=== PATIENT | male | born 1950 | race Caucasian/White ===

== ENCOUNTER 2025-03-07 12:58 | Outpatient (REF) | payer MEDICARE, SELFPAY ==
--- NOTE | ~2025-03-07 | XR_ITS ---
Examination: Lumbar spine 4 views. CLINICAL INDICATION: Low back pain. COMPARISON: None. FINDINGS: There is maintained lumbar lordosis with grade 1 anterolisthesis L4-L5. Rest of the vertebral alignment is normal. There is loss of disc height virtually at every lumbar disc level with mild ventral spondylosis. There is minimal positional levoscoliosis. No lytic or sclerotic process seen. The paravertebral soft tissues are normal. SI joints are symmetrical and normal. Incidental finding of a left hip prosthesis partially visualized is noted. XR/XR lumbar spine 4V min IMPRESSION: Degenerative disc changes and spondylosis. There is grade 1 anterolisthesis L4 over L5.. Electronically signed by: Joseph Olsen MD 03/07/2025 02:06 PM EDT
== END 2025-03-07 12:59 | disposition home or self-care (01) ==
LOC: HO.HOSX 12:58
PROVIDERS: Referring Provider Physical Medicine & Rehabilitation; Visit Provider Neurological Surgery
DX: M48.062 Spinal stenosis, lumbar region with neurogenic claudication (principal)
CPT/HCPCS: 72110; 99202

== ENCOUNTER 2025-03-07 12:58 | Outpatient (AMB) | payer MEDICARE, OTHER, SELFPAY ==
--- NOTE | 2025-03-07 13:16 | HO.SPINEOV ---
Vital Signs 03/07/25 13:18 Height 5 ft 7 in Weight 240 lb BMI 37.6 Intake Visit Reasons: LBP Intake Note: Mr. Loja is here today c/o Low back pain. Bar Helper Required: No Allergies No Known Allergies Allergy (Verified 03/07/25 13:18) Physical Exam Vital Signs: BMI result Body Mass Index 37.6 Assessment & Plan Assessment & Plan (1) Lumbar stenosis with neurogenic claudication: Code(s): M48.062 - Spinal stenosis, lumbar region with neurogenic claudication Category: Medical Plan: Dear colleague Thank you for referring Ramesh Loja to the office today with a chief complaint of bilateral buttock pain. HPI: This 74-year-old male has a 5 year progressive history of pain in his buttocks with walking and standing. Currently he can walk less than a quarter of a mi or stand less than 10 minutes before the symptoms occur. Sitting down improves the symptoms leaning forward over a shopping cart helps too. The pain is accompanied by fatigue in his legs. Second complaint is back pain across the lumbar spine with spasms that can occur after prolonged sitting were lifting. The pain restricted he has social life and he is not going out as often. He underwent physical therapy, chiropractic therapy and multiple epidural steroid injections without effect. He also did laser pain therapy he is using Celebrex and gabapentin for the symptoms. PMH: Diabetes type 2, last A1c 5.7 hypercholesterolemia, bilateral knee replacement left hip replacement, gastroplasty bilateral cataract surgery. Medications: Trazodone, tizanidine, Celebrex, atorvastatin, metformin, omeprazole, Zyrtec, Ozempic and gabapentin Allergies: NKDA Social history: . 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 Nonsmoker Physical Exam: Height 5 7, weight 240 lb. He is able to reproduce the pain down his buttocks after a few minutes of standing in the office. There are no deficits for motor or sensation. Straight leg raise is negative. Radiological Studies: MRI done at [facility] on 11/18/2024 shows moderate L4-5 central spinal stenosis and bilateral L4 foraminal stenosis. Dynamic lumbar x-rays show a minimal L4-5 spondylolisthesis without gross instability. Impression/Plan: Mr. Loja is suffering from progressive neurogenic claudication due to L4-5 spinal stenosis. He failed conservative management. I offered him an L4-5 decompression. At this stage she is not a candidate for a fusion despite the back pain component in his history. He is aware that a laminotomy has a minor risk of the stabilizing the L4-5 segment, requiring a fusion surgery. He wants to proceed in his scheduled for July 05. He will stop his Ozempic 1 week prior to surgery. He has a scheduled follow-up with a retort unloader for sleep apnea and he will get preoperative clearance from his primary care physician. Thank you for allowing me to participate in your patients care. total time spent was 50 minutes in counseling ,coordination of plan, personal review of imaging, surgical decision making and subsequent plan Rigo Dudley MD, PhD Spine Fellowship Trained Neurosurgeon Director, [facility] Orders: Orders XR lumbar spine 4V min Today M48.062 - Spinal stenosis, lumbar region with neurogenic claudication Coding Level of Care Code New Pt Level 4 (76762) Diagnoses Lumbar stenosis with neurogenic claudication M48.062
[2025-03-07 13:18] VITALS: BMI 37.6
--- OUTSIDE RECORDS SUMMARY | 2025-03-07 14:01 | XMS_ITS | Data Portability ---
Author Organization [facility] Address [address] [facility] [address] [place] [address] Assessment Encounter Date Assessment Date Assessment LastModified by Organization Details LastModified Time 07/07/2023 07/07/2023 Specific Analgesic Plan: Continue present Regimen: Yes Adjust dose of present analgesic: No Switch analgesics: No Add/Adjust concomitant therapy: Yes Discontinue/tap er off opioid therapy: n/a Opioid dependence discussed with patient. ___25__ minutes spent face to face with patient with greater than 50% spent counseling and/or coordinating care. Not available 07/07/2023 19:26:01 09/14/2023 09/14/2023 Specific Analgesic Plan: Continue present Regimen: Yes Adjust dose of present analgesic: No Switch analgesics: No Add/Adjust concomitant therapy: Yes Discontinue/tap er off opioid therapy: No __19___ minutes spent face to face with patient with greater than 50% spent counseling and/or coordinating care. Not available 09/14/2023 18:57:22 Plan of Treatment Reminders Order Date Submit Date Provider Last Modified By Organization Details Last Modified Time Details Appointments None recorded. Lab None recorded. Referral None recorded. Procedures other (proc) 2022 023 [email or web address], [address] [facility] [address], [place], [phone], 19:36:35 medial branch block, cervical (PROC) 2022 023 [email or web address], [address] [facility], [facility] [address], [place], [address], 19:36:35 Surgeries None recorded. Imaging None recorded. Medication Orders lidocaine 5 % topical ointment 2022 023 [id number], [id number], [place], [phone], 19:01:11 Patient TargetsNo targets recorded. Patient Instructions Encounter Date Encounter Id Patient Instructions Last Modified By Organization Details Last Modified Time 07/07/2023 [id number] cervical spondylosis: care instructions Not available 07/07/2023 19:36:35 neck arthritis: exercises Not available 07/07/2023 19:36:35 Opioid risks/benefits/de pendence discussed with patient. BMI elevated. Neg tob. Pos fall risk and dep. Not available 07/07/2023 19:36:33 09/14/2023 [id number] cervical spondylosis: care instructions Not available 09/14/2023 19:01:06 neck arthritis: exercises Not available 09/14/2023 19:01:06 Opioid risks/benefits/de pendence discussed with patient. BMI ELEVATED. NEG DEP AND FALL RISK. Neg tob. Not available 09/14/2023 19:08:37 Reason for Referral None Reported. Results Created Date Observation Date Name Description Value Unit Range Abnormal Flag Note LastModifiedBy Organization Detail LastModifiedTime 05/19/2005/19/2023 XR, cervi randy spine , 2 or 3 view No observ ation record ed. [facility] [address] [place], [place] [id number], [id number], 05/25/2023 16:21:17 Result Notes None recorded. Problems Name Problem SNOMED Code Status Onset Date Resolution Date Notes Provider Name and Address Organization Details Recorded Time Cervical spondylosi s 230591275 Active 2022 Joesph Nair MD [address] [facility] [address], [place], [address], - [facility] 19:28:13 Pain in right hand 683287635242 109 Active 2022 Joesph Nair MD [address] [facility] [address], [place], [address], - [facility] 3 18:58:04 Notes:LEFT BUTTOCK PAIN Problem Notes None recorded. Medical Equipment None Reported. Allergies No known drug allergies Medications Name Sig Start Date Stop Date Status Note LastModified by Organization Details LastModified Time latanoprost 0.005 % eye drops INSTILL 1 DROP INTO BOTH EYES EVERY EVENING DIRECTED active Not Available Not Available No t Available atorvastatin 40 mg tablet TAKE 1 TABLET BY MOUTH DAILY active Not Available Not Available No t Available neomycin-poly myxin-hydroco rt 3.5 mg/mL-10,000 unit/mL-1 % ear solution SHAKE LIQUID AND INSTILL 1 DROP IN BOTH EARS FOUR TIMES DAILY FOR 10 DAYS active Not Available Not Available No t Available atorvastatin 20 mg tablet active Not Available Not Available Not Available tizanidine 2 mg tablet TAKE 1 TABLET BY MOUTH TWICE DAILY NEEDED active Not Available Not Available No t Available alprazolam 1 mg tablet active Not Available Not Available No t Available valacyclovir 1 gram tablet TAKE 2 TABLETS BY MOUTH TWICE DAILY FOR 1 DAY AT INITIAL ONSET OF COLD SORE. NOT TO EXCEED 4 TABLETS IN 24 HOURS active Not Available Not Available No t Available hydrocodone 5 mg-acetaminop hen 325 mg tablet active Not Available Not Available Not Available atovaquone 250 mg-proguanil 100 mg tablet active Not Available Not Availabl e Not Available famotidine 40 mg tablet TAKE 1 TABLET BY MOUTH EVERY EVENING active Not Available Not Available No t Available acetaminophen 300 mg-codeine 30 mg tablet TAKE 1 TABLET BY MOUTH EVERY 6 HOURS NEEDED active Not Available Not Available No t Available ciprofloxacin 500 mg tablet TAKE 1 TABLET BY MOUTH TWICE DAILY FOR 7 DAYS active Not Available Not Available No t Available sulfamethoxaz ole 800 mg-trimethopr im 160 mg tablet active Not Available Not Available Not Available omeprazole 40 mg capsule,delay ed release TAKE 1 CAPSULE BY MOUTH TWICE DAILY BEFORE MEALS active Not Available Not Available No t Available aspirin 81 mg tablet,delaye d release TAKE 1 TABLET BY MOUTH DAILY active Not Available Not Available No t Available amoxicillin 500 mg tablet TAKE 1 TABLET BY MOUTH THREE TIMES DAILY active Not Available Not Available No t Available alprazolam 0.5 mg tablet active Not Available Not Availabl e Not Available alprazolam 0.25 mg tablet TAKE 1 TABLET BY MOUTH EVERY DAY NEEDED FOR ANXIETY active Not Available Not Available No t Available hydrocortison e 2.5 % lotion APPLY TWICE DAILY TO THE AFFECTED AREA NEEDED active Not Available Not Available No t Available tamsulosin 0.4 mg capsule TAKE 2 CAPSULES BY MOUTH EVERY DAY active Not Available Not Available No t Available trazodone 100 mg tablet TAKE 2 TABLETS BY MOUTH EVERY NIGHT active Not Available Not Available No t Available levothyroxine 125 mcg tablet TAKE 1 TABLET BY MOUTH DAILY active Not Available Not Available No t Available scopolamine 1 mg over 3 days transdermal patch APPLY 1 PATCH TOPICALLY TO THE SKIN EVERY 72 HOURS active Not Available Not Available No t Available timolol maleate 0.5 % eye drops INSTILL 1 DROP IN BOTH EYES EVERY MORNING active Not Available Not Available No t Available celecoxib 100 mg capsule active Not Available Not Available N ot Available cefdinir 300 mg capsule TAKE 1 CAPSULE BY MOUTH TWICE DAILY active Not Available Not Available No t Available fluticasone propionate 50 mcg/actuation nasal spray,suspens ion SHAKE LIQUID AND USE 2 SPRAYS IN EACH NOSTRIL DAILY active Not Available Not Available No t Available metformin ER 500 mg tablet,extend ed release 24 hr TAKE 1 TABLET BY MOUTH EVERY EVENING active Not Available Not Available No t Available sodium fluoride 1.1 % dental gel USE TO BRUSH TEETH ONCE DAILY DIRECTED active Not Available Not Available No t Available Alcohol Prep Pads USE TO TEST BLOOD SUGAR EVERY DAY active Not Available Not Available No t Available FreeStyle Lite Strips TEST BLOOD SUGAR EVERY DAY active Not Available Not Available No t Available lidocaine 5 % topical ointment APPLY TO AFFECTED AREA(S) BY TOPICAL ROUTE 1-4 TIMES DAILY NEEDED 2022 active Not Available Not Available Not Avai lable selenium sulfide 2.5 % lotion WASH AFFECTED AREA EVERY OTHER DAY active Not Available Not Available No t Available Quick[employer]ue At-Home COVID-19 Test kit TEST DIRECTED TODAY active Not Available Not Available No t Available Ozempic 0.25 mg or 0.5 mg (2 mg/3 mL) subcutaneous pen injector INJECT 0.5MG INTO THE SKIN EVERY 7 DAYS active Not Available Not Available No t Available Vitals Date Recorded Heart rate Respiratory rate Provider N aston and Address Organization Details Last Updated DateTime 07/07/2023 86 /min 14 /min Joesph Nair MD [address] [facility] [address], [place], [id number] 07/07/2023 19:20:52 Date Recorded Body height Heart rate Respiratory rate Body mass index (BMI) Body weight Provider Name and Address Organization Details Last Updated DateTime 09/14/2023 165.1 cm 64 /min 14 /min 39.9 kg/m2 936347. 17 g Joesph Nair MD [address],[facility] [address], [place], [address], - [facility] 3 18:54:43 Social History Question Answer Notes LastModified by Organizat ion Details LastModified Time Tobacco Smoking Status Unknown If Ever Smoked Not Available [facility] 08/13/2020 03:35:00 What Was The Date Of Your Most Recent Tobacco Screening? 05/01/2019 [id number] Information not available 08/13/2020 Sex: Unknown Functional Status None recorded. Mental Status None recorded. Family History Nothing Reported. Medical History Condition Response Anxiety Disorder Y Diabetes Y Acid Reflux (GERD) Y Ulcers High Cholesterol Y Past Encounters Encounter ID Performer Location Encounter Start Date Encounter Closed Date Diagnosis/Indication Diagnosis SNOMED-CT Code Diagnosis ICD10 Code Diagnosis Note [id number] Joesph Nari MD [facility] [address] [address] [place] [address] 07/07/2023 17:48:34 07/07/2023 19:37:23 Cervical spondylosis 994189879 M47.812 [id number] Joesph Nair MD [facility] T [address] [address] [place] [address] 09/14/2023 17:48:19 09/14/2023 19:02:07 Pain in right hand 5263426438 14309 M79.641 Cervical spondylosis 387 065821 M47.812 Lumbar spondylosis 21762 0009 M47.896 Health Concerns Section Related Observation LastModified by Organization Detai ls LastModified Time None Recorded Concern Status LastModified by Organization Details LastModified Time None Recorded Advance Directives Directive None Recorded Payers Encounter Date Sequence Insurance Name Policy Number Policy Paredes Covered Member ID Paredes Member ID Guarantor Name 07/07/2023 1 MEDICARE B-MD Ramesh Loja [id number] Ramesh Loja 07/07/2023 2 [employer] [id number] Ramesh Loja [id number] Ramesh Loja 09/14/2023 1 MEDICARE B- Ramesh Loja [id number] Ramesh Loja 09/14/2023 2 [employer] [id number] Ramesh Loja [id number] Ramesh Loja Notes Date Note Type Note Provider Name and Address Organization Details Recorded Time 07/07/2023 text/html Analgesia - If z ero indicates no pain and ten indicates pain as bad as it can be, on a scale of 0 to 10, what is your level of pain for the following questions? 1. What was your pain level on average during the past week? 6 2. What was your pain level at its worst during the past week? 6 3. What percentage of your pain has been relieved during the past week? ____70_% 4. Is the amount of pain relief you are now obtaining from your current pain reliever(s) enough to make a real difference in your life? Yes 5. Is the patient's pain relief clinically significant? Yes Activities of Daily Living - Please indicate whether the patient's functioning with the current pain reliever(s) is better, the same, or worse since the patient's last assessment with the PADT. 1. Physical functioning: Same 2. Family Relationships: Same 3. Social Relationships: Same 4. Mood: Same 5. Sleep Patterns: Same Overall functioning: Same Adverse Events 1. Is patient experiencing any side effects from current pain reliever? No Nausea: None Vomiting: None Constipation: None Itching: None Mental Cloudiness: None Sweating: None Fatigue: None Drowsiness: None INSERT TEXT HERE: None 2. Patients overall severity of side effects? None Assessment: Is your overall impression that this patient is benefiting (eg, benefits, such as pain relief, outweigh side effects) from opioid therapy? Yes COMMENTS: Potential Aberrant Drug-Related Behavior - The following items were discovered during my interactions with the patient. Please note that some of these are directly observable (eg, appears intoxicated), while others may require more active listening and/or probing. a. Purposeful over-sedation: No b. Negative mood change: No c. Appears intoxicated: No d. Increasingly unkempt or impaired: No e. Involvement in car or other accident: No f. Requests frequent early renewals: No g. Increased dose without authorization: No h. Reports lost or stolen prescriptions: No i. Attempts to obtain prescriptions from other doctors: No j. Changes route of administration: No k. Uses pain medication in response to situational stressor: No l. Insists on certain medications by name: No m. Contact with street drug culture: No n. Abusing alcohol or illicit drugs: No o. Hoarding (ie, stockpiling) of medication: No p. Arrested by police: No q. Victim of abuse: No r. INSERT TEXT HERE: Patients average overall daily pain for the past month on a scale of 1-10: 6 1.) Continued significant reduction in Pain leading to comfortably carrying out ADLs Yes 2.) Improvement in mood and enjoyment of ADLs Yes 3.) A return to meaningful social interactions Yes 4.) Increased mobility Yes 5.) Increased ROM Yes 6.) Ability to maintain or return to work Yes 7.) Ability to care for self Yes 8.) Ability to care for dependent family members Yes 9.) Overall improvement in quality of life Yes Joesph Nair MD [address] [facility] [address], [place], [address], - [facility] 07/07/2023 19:37:21 09/14/2023 text/html Analgesia - If z ero indicates no pain and ten indicates pain as bad as it can be, on a scale of 0 to 10, what is your level of pain for the following questions? 1. What was your pain level on average during the past week? 3 2. What was your pain level at its worst during the past week? 3 3. What percentage of your pain has been relieved during the past week? 90% 4. Is the amount of pain relief you are now obtaining from your current pain reliever(s) enough to make a real difference in your life? Yes 5. Is the patient's pain relief clinically significant? Yes Activities of Daily Living - Please indicate whether the patient's functioning with the current pain reliever(s) is better, the same, or worse since the patient's last assessment with the PADT. 1. Physical functioning: Better 2. Family Relationships: Better 3. Social Relationships: Better 4. Mood: Better 5. Sleep Patterns: Better Overall functioning: Better Adverse Events 1. Is patient experiencing any side effects from current pain reliever? No Nausea: None Vomiting: None Constipation: None Itching: None Mental Cloudiness: None Sweating: None Fatigue: None Drowsiness: None INSERT TEXT HERE: None 2. Patients overall severity of side effects? None Assessment: Is your overall impression that this patient is benefiting (eg, benefits, such as pain relief, outweigh side effects) from opioid therapy? Yes COMMENTS: Potential Aberrant Drug-Related Behavior - The following items were discovered during my interactions with the patient. Please note that some of these are directly observable (eg, appears intoxicated), while others may require more active listening and/or probing. a. Purposeful over-sedation: No b. Negative mood change: No c. Appears intoxicated: No d. Increasingly unkempt or impaired: No e. Involvement in car or other accident: No f. Requests frequent early renewals: No g. Increased dose without authorization: No h. Reports lost or stolen prescriptions: No i. Attempts to obtain prescriptions from other doctors: No j. Changes route of administration: No k. Uses pain medication in response to situational stressor: No l. Insists on certain medications by name: No m. Contact with street drug culture: No n. Abusing alcohol or illicit drugs: No o. Hoarding (ie, stockpiling) of medication: No p. Arrested by police: No q. Victim of abuse: No r. INSERT TEXT HERE: Patients average overall daily pain for the past month on a scale of 1-10: 6 1.) Continued significant reduction in Pain leading to comfortably carrying out ADLs Yes 2.) Improvement in mood and enjoyment of ADLs Yes 3.) A return to meaningful social interactions Yes 4.) Increased mobility Yes 5.) Increased ROM Yes 6.) Ability to maintain or return to work Yes 7.) Ability to care for self Yes 8.) Ability to care for dependent family members Yes 9.) Overall improvement in quality of life Yes Joesph Nair MD [address] [facility] [address], [place], [address], [facility] 09/14/2023 19:08:45
== END 2025-03-07 14:10 | disposition home or self-care (01) ==
PROVIDERS: Referring Provider Physical Medicine & Rehabilitation; Visit Provider Neurological Surgery
DX: M48.062 Spinal stenosis, lumbar region with neurogenic claudication (principal)
CPT/HCPCS: 99204

== ENCOUNTER → 2025-03-07 13:38 | Outpatient (BNV) | payer MEDICARE, SELFPAY | PROVIDERS: Referring Provider Physical Medicine & Rehabilitation; Visit Provider Radiology Diagnostic Radiology | DX: M47.896 Other spondylosis, lumbar region (principal) | CPT/HCPCS: 72110 ==

== ENCOUNTER → 2025-06-21 11:51 | Outpatient (BNV) | payer MEDICARE, OTHER, SELFPAY | PROVIDERS: Visit Provider Internal Medicine Cardiovascular Disease | DX: R00.1 Bradycardia, unspecified (principal) | CPT/HCPCS: 93010 ==

== ENCOUNTER 2025-07-05 07:02 | Day surgery (SDC) | payer MEDICARE, OTHER, SELFPAY ==
--- OUTSIDE RECORDS SUMMARY | 2025-05-08 16:34 | XMS_ITS | Encounter Summary ---
Author Organization [facility] Address [address] [facility] [address] [place] [address] Phone Care Team Providers Care Interior Wall Assembler Name Role Phone Sonja David NP Primary Care Provider [phone] Encounter Details Date Type Department Care Team (Late st Contact Info) Description 03/16/2025 Telephone [facility] [address] [place] [address] [address] Floor, [address] [place] [address] Chilo Kuo MD [address] [facility], [facility] [address] [place] [address] [email or web address] Social History Tobacco Use Types Packs/Day Years Used Date Smoking Tobacco: Former Cigarettes Q uit: 2004 Smokeless Tobacco: Never Alcohol Use Standard Drinks/Week Comments Yes 7 (1 standard drink = 0.6 oz pur e alcohol) 1 Education Answer Date Recorded Are you interested in more education? Not on berny e 01/18/2024 Are you concerned about learning? Not on file 01/18/2024 No 01/18/2024 No 01/18/2024 Digital Access Answer Date Recorded No 01/18/2024 No 01/18/2024 Reliable internet access at home? Not on file 01/18/2024 Device with a working camera? Not on file Intimate Partner Violence Answer Date R ecorded Are you denied basic needs s uch as food, clothing, or medical care? No 05/09/2024 In the past 12 months have y ou been in a relationship with a person who hurts, threatens, or tries to control you? No 05/09/2024 Are you denied basic needs s uch as food, clothing, or medical care? No 05/09/2024 In the past 12 months have y ou been in a relationship with a person who hurts, threatens, or tries to control you? No 05/09/2024 Sex and Gender Information Value Date Recorded Sex Assigned at Not on file Legal Sex Male 12:22 PM EDT Gender Identity Male 04/20/2024 7:44 AM EDT Sexual Orientation Straight 04/20/2024 7: 44 AM EDT documented as of this encounter Progress Notes * Delmis Lea - 03/21/2025 9:49 AM EDT Pt wants to go forward with the in-lab. He said [facility] is convenient for him for the study * Delmis Lea - 03/16/2025 10:52 AM EDT Pt is hoping to go over results of sleep study documented in this encounter Plan of Treatment Not on file documented as of this encounter Visit Diagnoses Not on filedocumented in this encounter Care Teams Interior Wall Assembler Relationship Specialty Start Date End Date Sonja David NP [address] [place] [id number] PCP - General Nurse Practitioner 09/20/24 documented as of this encounter Additional Source Comments The information contained in this document represents components of the legal health record. It is not the complete legal health record.[facility]
--- OUTSIDE RECORDS SUMMARY | 2025-05-08 16:34 | XMS_ITS | Data Portability ---
Author Organization [facility] Address [address] [facility] [address] [place] [address] Assessment Encounter Date Assessment Date Assessment LastModified [...] 2022 023 [email or web address], [address] [facility] [address], [place], [address], 19:36:35 medial branch block, cervical (PROC) 2022 023 [email or web address] 4 [facility], [address] [facility] [address], [place], [address], 19:36:35 Surgeries None recorded. Imaging None recorded. Medication Orders lidocaine 5 % topical ointment 2022 023 [id number] [id number], [place], [phone], 19:01:11 Patient TargetsNo targets recorded. Patient Instructions Encounter Date Encounter Id Patient Instructions Last Modified By Organization Details Last Modified Time 07/07/2023 [id number] cervical spondylosis: care instructions Not available 07/07/2023 19:36:35 neck arthritis: exercises Not available 07/07/2023 19:36:35 Opioid risks/benefits/de pendence discussed with patient. BMI elevated. Neg tob. Pos fall risk and dep. Not available 07/07/2023 19:36:33 09/14/2023 [id number] cervical spondylosis: care instructions Not available 09/14/2023 [...] 3 view No observ ation record ed. [facility] [address] [place], [id number], 05/25/2023 16:21:17 Result Notes None recorded. Problems Name Problem SNOMED Code Status Onset Date Resolution Date Notes Provider Name and Address Organization Details Recorded Time Cervical spondylosi s 652475031 Active 2022 Joesph Nair MD [address] [place] [address],[facility] [address], [place], [address], - [facility] 19:28:13 Pain in right hand 741088731108 109 Active 2022 Joesph Nair MD [address] [place] [address],[facility] [address], [place], [address], MD [facility] 3 18:58:04 Notes:LEFT BUTTOCK [...] Vitals Date Recorded Heart rate Respiratory rate Pain severity - 0-10 verbal numeric rating [Score] - Reported Provider Name and Address Organization Details Last Updated DateTime 07/07/2023 86 /min 14 /min 6 Joesph Nair MD [address] [place] [address], [place], [address], - [facility] 07/07/2023 19:21:30 Date Recorded Body height Heart rate Respiratory rate Pain severity - 0-10 verbal numeric rating [Score] - Reported Body mass index (BMI) Body weight Provider Name and Address Organization Details Last Updated DateTime 3 165.1 cm 64 /min 14 /min 4 39.9 kg/m2 542380. 17 g Joesph Nair MD [address] [place] [address] , [place], [address], - [facility] 3 18:54:43 Social History Question Answer Notes LastModified by Organizat ion Details LastModified Time Tobacco Smoking Status Unknown If Ever Smoked Not Available [facility] 03:35:00 What Was The Date Of Your Most Recent Tobacco Screening? 05/01/2019 [id number] Information not available 08/13/2020 Sex: Unknown Functional Status None recorded. Mental Status None recorded. Family History Nothing Reported. Medical History Condition Response Anxiety Disorder Y Diabetes Y Acid Reflux (GERD) Y Ulcers High Cholesterol Y Past Encounters Encounter ID Performer Location Encounter Start Date Encounter Closed Date Diagnosis/Indication Diagnosis SNOMED-CT Code Diagnosis ICD10 Code Diagnosis Note [id number] Joesph Nair MD [facility] [address] [place] [address] [place] [address] 07/07/2023 17:48:34 07/07/2023 19:37:23 Cervical spondylosis 353240545 M47.812 [id number] Joesph Nair MD [facility] [address] [place] [address] [place] [address] 09/14/2023 17:48:19 09/14/2023 19:02:07 Pain in right hand 3549125559 92894 M79.641 Cervical spondylosis 387 423238 M47.812 Lumbar spondylosis 99432 0009 M47.896 Health Concerns Section Related Observation LastModified by Organization Detai ls LastModified Time None Recorded Concern Status LastModified by Organization Details LastModified Time None Recorded Advance Directives Directive None Recorded Payers Insurance Date Sequence Insurance Name Policy Number Policy Paredes Covered Member ID Paredes Member ID Guarantor Name 04/20/2019 1 MEDICARE B-MD Ramesh Loja [id number] Ramesh Loja 04/20/2019 2 [employer] [id number] Ramesh Loja [id number] Rmaesh Loja
--- OUTSIDE RECORDS SUMMARY | 2025-05-08 16:35 | XMS_ITS ---
Author Name [facility] Organization Unknown Results Test Name/Text Value Interpretation Date Range Source PROSTATE SPECIFIC AG 0.44 ng/mL Normal 01/26/2024 0 - 6.2 [facility] GLOMERULAR FILTRATION RATE/1.73 SQ M.PREDICTED 92.0 Normal 01/26/2024 - [facility] OSMOLALITY 278.0 mOsm/kg Normal 01/26/2024 275 - 295 [facility] POTASSIUM 4.4 mmol/L Normal 01/26/2024 3.5 - 5.1 [facility] TR CALCIUM 8.9 mg/dL Normal 01/26/2024 8.5 - 10.1 [facility] TR CREATININE 0.8 mg/dL Normal 01/26/2024 0.6 - 1.3 [facility] TR GLUCOSE 90.0 mg/dL Normal 01/26/2024 70 - 99 [facility] TR CARBON DIOXIDE 26.0 mmol/L Normal 01/26/2024 22 - 30 [facility] SODIUM 139.0 mmol/L Normal 01/26/2024 136 - 145 [facility] CHLORIDE 107.0 mEq/L Normal 01/26/2024 98 - 107 [facility] ANION GAP 4 6.0 Normal 01/26/2024 5 - 15 [facility] UREA NITROGEN/CREATININE 20.0 Normal 01/26/2024 10 - 20 [facility] TR UREA NITROGEN 16.0 mg/dL Normal 01/26/2024 7 - 20 [facility] _[facility] Hemoglobin A1c/Hemoglobin.total in Blood 6.0 % 12/24/2023 4.8 - 6 [facility] GLOMERULAR FILTRATION RATE/1.73 SQ M.PREDICTED 89.0 Normal 12/24/2023 - [facility] ALANINE AMINOTRANSFERASE 20.0 IU/L Normal 12/24/2023 4 - 49 [facility] CREATININE 0.9 mg/dL Normal 12/24/2023 0.6 - 1.3 [facility] TR UREA NITROGEN/CREATININE 17.0 Normal 12/24/2023 10 - 20 [facility] TR PROTEIN 6.8 g/dL Normal 12/24/2023 6.4 - 8.2 [facility] R ALBUMIN/GLOBULIN 1.3 ratio Normal 12/24/2023 0.8 - 2 [facility] GLOBULIN 2.9 g/dL Normal 12/24/2023 2.2 - 4.2 [facility] R GLUCOSE 109.0 mg/dL Above high normal 12/24/2023 70 - 99 [facility] UREA NITROGEN 15.0 mg/dL Normal 12/24/2023 7 - 20 [facility] _[facility] SODIUM 138.0 mmol/L Normal 12/24/2023 136 - 145 [facility] CHLORIDE 104.0 mEq/L Normal 12/24/2023 98 - 107 [facility] BILIRUBIN 0.6 mg/dL Below low normal 12/24/2023 1 - 1.4 [facility] ASPARTATE AMINOTRANSFERASE 20.0 U/L Normal 12/24/2023 17 - 59 [facility] CALCIUM 8.8 mg/dL Normal 12/24/2023 8.5 - 10.1 [facility] TR ALKALINE PHOSPHATASE 52.0 U/L Normal 12/24/2023 38 - 126 [facility] ANION GAP 4 6.0 Normal 12/24/2023 5 - 15 [facility] ALBUMIN 3.9 g/dL Normal 12/24/2023 3.4 - 5 [facility] R POTASSIUM 4.4 mmol/L Normal 12/24/2023 3.5 - 5.1 [facility] TR CARBON DIOXIDE 28.0 mmol/L Normal 12/24/2023 22 - 30 [facility] OSMOLALITY 277.0 mOsm/kg Normal 12/24/2023 275 - 295 [facility] CHOLESTEROL.IN HDL 38.0 mg/dL Below low normal 12/24/2023 - [facility] CHOLESTEROL.TOTAL/SUJATHA STEROL.IN HDL 3.3 Normal 12/24/2023 0 - 3.9 [facility] CHOLESTEROL.IN VLDL 21.6 mg/dL Normal 12/24/2023 0 - 29 [facility] TRIGLYCERIDE 108.0 mg/dL Normal 12/24/2023 15 - 150 [facility] _[facility] CHOLESTEROL.IN LDL 67.0 mg/dL Normal 12/24/2023 0 - 124 [facility] CHOLESTEROL 127.0 mg/dL Normal 12/24/2023 50 - 200 [facility] HEMOGLOBIN A1C/HEMOGLOBIN.TOTAL 6.0 % Normal 12/24/2023 4.8 - 6 [facility] GLUCOSE 76.0 mg/dL Normal 11/09/2023 70 - 109 [facility] TR GLOMERULAR FILTRATION RATE.PREDICTED 78.0 Normal 11/08/2023 - [facility] TRIACYLGLYCEROL LIPASE 237.0 u/L Normal 11/08/2023 23 - 3 00 [facility] MAGNESIUM 2.3 mg/dL Normal 11/08/2023 1.6 - 2.3 [facility] R ALBUMIN 4.4 g/dL Normal 11/08/2023 3.4 - 5 [facility] R ALBUMIN/GLOBULIN 1.2 ratio Normal 11/08/2023 0.8 - 2 [facility] ANION GAP 4 7.0 Normal 11/08/2023 5 - 15 [facility] STR UREA NITROGEN 15.0 mg/dL Normal 11/08/2023 7 - 20 [facility] _[facility] PROTEIN 8.1 g/dL Normal 11/08/2023 6.4 - 8.2 [facility] R GLOBULIN 3.7 g/dL Normal 11/08/2023 2.2 - 4.2 [facility] R BILIRUBIN 0.4 mg/dL Below low normal 11/08/2023 1 - 1.4 [facility] ALKALINE PHOSPHATASE 64.0 U/L Normal 11/08/2023 38 - 126 [facility] CARBON DIOXIDE 31.0 mmol/L Above high normal 11/08/2023 22 - 30 [facility] CREATININE 1.0 mg/dL Normal 11/08/2023 0.6 - 1.3 [facility] TR SODIUM 139.0 mmol/L Normal 11/08/2023 136 - 145 [facility] OSMOLALITY 282.0 mOsm/kg Normal 11/08/2023 275 - 295 [facility] CALCIUM 9.9 mg/dL Normal 11/08/2023 8.5 - 10.1 [facility] TR GLUCOSE 165.0 mg/dL Above high normal 11/08/2023 70 - 99 [facility] POTASSIUM 4.4 mmol/L Normal 11/08/2023 3.5 - 5.1 [facility] TR ASPARTATE AMINOTRANSFERASE 36.0 U/L Normal 11/08/2023 17 - 59 [facility] U[facility] NITROGEN/CREATININE 15.0 Normal 11/08/2023 10 - 20 [facility] TR CHLORIDE 101.0 mEq/L Normal 11/08/2023 98 - 107 [facility]_ STR ALANINE AMINOTRANSFERASE 40.0 IU/L Normal 11/08/2023 4 - 49 [facility] LE[facility] 13.1 Thou/uL Above high normal 11/08/2023 4 - 10. 8 [facility] ERYTHROCYTE MEAN CORPUSCULAR VOLUME 92.1 fL Normal 11/08/2023 81.2 - 95.1 [facility] ERYTHROCYTE MEAN CORPUSCULAR HEMOGLOBIN CONCENTRATION 31.9 g/dL Below low normal 11/08/2023 33.4 - 35.5 [facility] ER[facility]TES 4.93 Mill/uL Normal 11/08/2023 4.7 - 6.1 [facility] PLATELETS 453.0 Thou/uL Above high normal 11/08/2023 160 - 450 [facility] PLATELET MEAN VOLUME 8.9 fL Normal 11/08/2023 7.4 - 10 .4 [facility] ERYTHROCYTE DISTRIBUTION WIDTH 13.5 % Normal 11/08/2023 11 - 15 [facility] ERYTHROCYTE MEAN CORPUSCULAR HEMOGLOBIN 29.4 pg Normal 11/08/2023 27.5 - 33.2 [facility] H[facility] 14.5 g/dL Normal 11/08/2023 14 - 18 [facility] TR HEMATOCRIT 45.4 % Normal 11/08/2023 41.5 - 50 [facility] TR EOSINOPHILS/100 LEUKOCYTES 1.7 % Normal 11/08/2023 0 - 5 [facility] GRANULOCYTES.IMMATURE 0.2 Thou/uL Normal 11/08/2023 [facility] BASOP[facility]S/100 LEUKOCYTES 0.2 % Normal 11/08/2023 0 - 3 [facility] BASOPHILS 0.0 Thou/uL Normal 11/08/2023 0 - 0.2 [facility] STR EOSINOPHILS 0.2 Thou/uL Normal 11/08/2023 0 - 0.7 [facility]_ [facility] MONOCYTES/100 LEUKOCYTES 6.1 % Normal 11/08/2023 0 - 15 [facility] LYMPHOCYTES/100 LEUKOCYTES 12.6 % Below low normal 11/08/2023 20 - 45 [facility] NEUTROPHILS 10.2 Thou/uL Above high normal 11/08/2023 2.4 - 8 [facility] MONOCYTES 0.8 Thou/uL Normal 11/08/2023 0.1 - 1.5 [facility] STR LYMPHOCYTES 1.7 Thou/uL Normal 11/08/2023 1 - 5 [facility]_ [facility] GRANULOCYTES.IMMATURE/1 00 LEUKOCYTES 1.0 % Normal 11/08/2023 [facility] NEUTROPHILS/100 LEUKOCYTES 78.1 % Above high normal 11/08/2023 40 - 75 [facility] GLUCOSE 132.0 mg/dL Above high normal 11/08/2023 70 - 109 [facility] PROSTATE SPECIFIC AG 0.54 ng/mL Normal 10/20/2023 0 - 6.2 [facility] GLUCOSE 120.0 mg/dL Above high normal 07/14/2023 70 - 109 [facility] Hemoglobin A1c/Hemoglobin.total in Blood 5.8 % 06/29/2023 4.8 - 6 [facility] HEMOGLOBIN A1C/HEMOGLOBIN.TOTAL 5.8 % Normal 06/29/2023 4.8 - 6 [facility] STR Estimated GFR 89.0 Normal 06/29/2023 - [facility]_ [facility] CHOLESTEROL.IN VLDL 19.0 mg/dL Normal 06/29/2023 0 - 29 [facility] CHOLESTEROL 139.0 mg/dL Normal 06/29/2023 50 - 200 [facility]_ [facility] CHOLESTEROL.TOTAL/SUJATHA STEROL.IN HDL 3.7 Normal 06/29/2023 0 - 3.9 [facility] TRIGLYCERIDE 95.0 mg/dL Normal 06/29/2023 15 - 150 [facility] CHOLESTEROL.IN LDL 82.0 mg/dL Normal 06/29/2023 0 - 124 [facility] CHOLESTEROL.IN HDL 38.0 mg/dL Below low normal 06/29/2023 - [facility] CHLORIDE 104.0 mEq/L Normal 06/29/2023 98 - 107 [facility] STR ANION GAP 4 9.0 Normal 06/29/2023 5 - 15 [facility] STR PROTEIN 6.8 g/dL Normal 06/29/2023 6.4 - 8.2 [facility] R ALANINE AMINOTRANSFERASE 25.0 IU/L Normal 06/29/2023 4 - 49 [facility] ALKALINE PHOSPHATASE 52.0 U/L Normal 06/29/2023 38 - 126 [facility] CARBON DIOXIDE 26.0 mmol/L Normal 06/29/2023 22 - 30 [facility] ALANINE AMINOTRANSFERASE/ASPART ATE AMINOTRANSFERASE 43.0 U/L Normal 06/29/2023 17 - 59 [facility] STR ALBUMIN/GLOBULIN 1.6 ratio Normal 06/29/2023 0.8 - 2 [facility] UREA NITROGEN 15.0 mg/dL Normal 06/29/2023 7 - 20 [facility] _[facility] GLUCOSE 105.0 mg/dL Above high normal 06/29/2023 70 - 99 [facility] POTASSIUM 4.3 mmol/L Normal 06/29/2023 3.5 - 5.1 [facility] TR CALCIUM 8.6 mg/dL Normal 06/29/2023 8.5 - 10.1 [facility] TR OSMOLALITY 279.0 mOsm/kg Normal 06/29/2023 275 - 295 [facility] UREA NITROGEN/CREATININE 17.0 Normal 06/29/2023 10 - 20 [facility] TR SODIUM 139.0 mmol/L Normal 06/29/2023 136 - 145 [facility] ALBUMIN 4.2 g/dL Normal 06/29/2023 3.4 - 5 [facility] R GLOBULIN 2.6 g/dL Normal 06/29/2023 2.2 - 4.2 [facility] R BILIRUBIN 0.5 mg/dL Below low normal 06/29/2023 1 - 1.4 [facility] CREATININE 0.9 mg/dL Normal 06/29/2023 0.6 - 1.3 [facility] TR MONOCYTES/100 LEUKOCYTES 9.0 % Normal 06/29/2023 0 - 15 [facility] EOSINOPHILS/100 LEUKOCYTES 2.8 % Normal 06/29/2023 0 - 5 [facility] MONOCYTES 0.6 Thou/uL Normal 06/29/2023 0.1 - 1.5 [facility] STR BASOPHILS 0.0 Thou/uL Normal 06/29/2023 0 - 0.2 [facility] STR LYMPHOCYTES/100 LEUKOCYTES 19.9 % Below low normal 06/29/2023 20 - 45 [facility] NEUTROPHILS 4.1 Thou/uL Normal 06/29/2023 2.4 - 8 [facility]_ [facility] GRANULOCYTES.IMMATURE/1 00 LEUKOCYTES 1.0 % Normal 06/29/2023 [facility] NEUTROPHILS/100 LEUKOCYTES 67.2 % Normal 06/29/2023 40 - 75 [facility] LYMPHOCYTES 1.2 Thou/uL Normal 06/29/2023 1 - 5 [facility]_ [facility] BASOPHILS/100 LEUKOCYTES 0.3 % Normal 06/29/2023 0 - 3 [facility] GRANULOCYTES.IMMATURE 0.0 Thou/uL Normal 06/29/2023 [facility] EOSINOPHILS 0.2 Thou/uL Normal 06/29/2023 0 - 0.7 [facility]_ [facility] LEUKOCYTES 6.1 Thou/uL Normal 06/29/2023 4 - 10.8 [facility]STR ERYTHROCYTE MEAN CORPUSCULAR VOLUME 95.8 fL Above high normal 06/29/2023 81.2 - 95.1 [facility] _[facility]STR ERYTHROCYTE DISTRIBUTION WIDTH 14.1 % Normal 06/29/2023 11 - 15 [facility] R ERYTHROCYTE MEAN CORPUSCULAR HEMOGLOBIN 30.3 pg Normal 06/29/2023 27.5 - 33.2 [facility]_ [facility] ERYTHROCYTE MEAN CORPUSCULAR HEMOGLOBIN CONCENTRATION 31.6 g/dL Below low normal 06/29/2023 33.4 - 35.5 [facility] HEMOGLOBIN 13.6 g/dL Below low normal 06/29/2023 14 - 18 U [facility] HEMATOCRIT 43.0 % Normal 06/29/2023 41.5 - 50 [facility] TR PLATELET MEAN VOLUME 10.0 fL Normal 06/29/2023 7.4 - 10 .4 [facility] ERYTHROCYTES 4.49 Mill/uL Below low normal 06/29/2023 4.7 - 6.1 [facility] PLATELETS 292.0 Thou/uL Normal 06/29/2023 160 - 450 [facility] History of Medication Use Medication Directions Dispensed Refills Start Date End Date Stat cefTRIAXone (ROCEPHIN) 1 g in sodium chloride 0.9 % 100 mL IVPB MINI-BAG Plus 1 g every 24 hours, Intravenous, at 200 mL/hr, 7 doses, First dose on Wed06/27/22 at 0500, Last dose on Wed07/03/22 at 0500Select an indication for your order: - UTI 06/27/2022 07/04/2022 active amoxicillin (AMOXIL) 500 MG TABS tablet Take 1 tablet by mouth 3 times daily. 06/26/2022 active fluticasone (FLONASE ALLERGY RELIEF) 50 MCG/ACT nasal spray 2 sprays by Each Nare route daily. 06/26/2022 active scopolamine (TRANSDERM-SCOP) 1 MG/3DAYS patch Place 1 patch onto the skin every 72 hours. 05/26/2022 active celecoxib (CELEBREX) 100 MG capsule Take 1 capsule by mouth 1 time daily as needed for Pain. 04/29/2022 active mirabegron (MYRBETRIQ) 25 MG TB24 Take 1 tablet by mouth daily. 03/04/2022 active levothyroxine (SYNTHROID) 125 MCG tablet TAKE 1 TABLET BY MOUTH DAILY 12/18/2021 active metFORMIN (GLUCOPHAGE XR) 500 MG tablet extended release 24 HR Take 1 tablet by mouth every evening. 11/11/2021 active famotidine (PEPCID) 40 MG tablet Take 1 tablet by mouth every evening. 10/30/2021 10/29/2021 active omeprazole (PRILOSEC) 40 MG capsule delayed release Take 1 capsule by mouth 2 times daily before meals. 10/30/2021 active umeclidinium (INCRUSE ELLIPTA) 62.5 MCG/INH AEPB 62.5 mcg/inh inhaler Take 1 puff by inhalation daily. 10/09/2021 active fluticasone-vilantero l (BREO ELLIPTA) 100-25 MCG/INH Take 1 puff by inhalation daily. 10/02/2021 active traZODone (DESYREL) 100 MG tablet Take 3 tablets by mouth nightly. 06/09/2021 active latanoprost (XALATAN) 0.005 % ophthalmic solution INT 1 GTT IN OU QHS 03/09/2017 active latanoprost (XALATAN) 0.005 % ophthalmic solution INT 1 GTT IN OU QHS 03/09/2017 active valACYclovir (VALTREX) 1 g tablet Take 1 tablet by mouth as instructed. PRN cold sores 02/23/2013 active cetirizine (ZYRTEC) 10 MG tablet Take 10 mg by mouth daily. active Magnesium 300 MG CAPS Take 1 capsule by mouth daily. active Vitamin D, Cholecalciferol, 400 units CAPS Take 400 capsules by mouth daily. 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 2021-03-11 ProblemAct [facility] Meckel's diverticulitis active EncounterDiagnosisAct [facility] _[facility] H/O colonoscopy with polypectomy active 2020-11-19 ProblemAct [facility] PVD (peripheral vascular disease) active ProblemAct [facility] Herpes simplex virus (HSV) infection active 2012-06-20 ProblemAct [facility] Urgency of urination active 2020-09-02 ProblemAct [facility] Advance care planning active 2021-04-09 ProblemAct [facility] Lumbosacral spondylosis without myelopathy active 2015-03-06 ProblemAct [facility] Nocturia active 2020-09-02 ProblemAct [facility] C CKD (chronic kidney disease) stage 2, GFR 60-89 ml/min active 2020-11-11 ProblemAct [facility] Chronic hip pain, bilateral active 2020-11-19 ProblemAct [facility] Pain in right hand active 2023-09-14 ProblemAct [facility] Hx of basal cell carcinoma active 2013-02-23 ProblemAct [facility] Prediabetes active 2020-11-11 ProblemAct [facility]_E PIC History of gastrectomy active 2021-01-21 ProblemAct [facility] Bilateral chronic knee pain active 2020-11-19 ProblemAct [facility] Carotid artery stenosis, asymptomatic, bilateral active 2022-05-13 ProblemAct [facility] Frequency of urination active 2020-09-02 ProblemAct [facility] BPH with urinary obstruction active 2020-09-02 ProblemAct [facility] Cancer of base of tongue active 2015-04-24 ProblemAct [facility] History of chemotherapy active 2015-04-24 ProblemAct [facility] Overactive bladder active 2020-09-02 ProblemAct [facility] CAD in [place] artery active 2022-05-13 ProblemAct [facility] Type 2 diabetes mellitus without complications active 2021-11-11 ProblemAct [facility] Glaucoma active 2018-11-28 ProblemAct [facility] C History of tobacco abuse active 2022-05-13 ProblemAct [facility] Gastroesophageal reflux disease active 2021-01-21 ProblemAct [facility] Depression active 2021-03-04 ProblemAct [facility] IC Small bowel diverticular disease active EncounterDiagnosisAct [facility]_EPIC Urge incontinence active 2020-09-02 ProblemAct [facility] Hiatal hernia active 2020-11-19 ProblemAct [facility] _EPIC Arthritis of sacrum active 2019-03-07 ProblemAct [facility] Hypothyroidism, acquired active 2018-11-28 ProblemAct [facility]_EP[facility] History of tuberculosis active 2021-03-04 ProblemAct [facility] Insomnia, unspecified active 2011-01-13 ProblemAct [facility] Anxiety state active 2011-07-07 ProblemAct [facility] _EPIC Dyslipidemia active 2022-05-13 ProblemAct [facility]_ EP[facility] Cervical spondylosis without myelopathy active 2023-07-08 ProblemAct [facility]_EPIC AMBER treated with BiPAP active 2015-12-06 ProblemAct [facility] 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 2011-01-13 ProblemAct [facility] Acute cystitis with hematuria active EncounterDiagnosisAct [facility]_E MPI Immunizations Vaccine Date Source Lot Number Status Influenza Vaccine Increased Antigen 07/05/2023 [facility] [id number] completed Respiratory syncytial virus Vaccine - Arexvy ([id number]) 07/05/2023 [facility] completed Influenza Vaccine => 1 yrs old 06/29/2023 [facility] completed Influenza Vaccine Quadrivale nt Recombinant Prsrv Free 08/03/2022 [facility] FLU BLOK completed Influenza Fluad Quadrivalent 65 And Older 07/07/2022 [facility] completed MODERNA COVID-19 MONOVALENT VACCINE (FULL DOSE 0.5 mL) 01/30/2022 [facility] [id number] completed Influenza Vaccine Increased Antigen 08/08/2021 [facility] [id number] completed Influenza Vaccine Increased Antigen Adjuvant 08/08/2021 [facility] [id number] completed Influenza Vaccine => 1 yrs old 07/29/2021 [facility] completed MODERNA COVID-19 MONOVALENT VACCINE (FULL DOSE 0.5 mL) 12/05/2020 [facility] [id number] completed MODERNA COVID-19 MONOVALENT VACCINE (FULL DOSE 0.5 mL) 11/06/2020 [facility] [id number] completed Influenza, Inject, Quadrivalent, P-free 07/30/2020 [facility]_ [facility] [id number] completed Zoster (SHINGRIX) Vaccine 08/15/2019 [facility] [id number] completed Influenza Vaccine Increased Antigen 06/30/2019 [facility] [id number] completed Influenza Vaccine Increased Antigen Adjuvant 06/30/2019 [facility] [id number] completed Zoster (SHINGRIX) Vaccine 05/04/2019 [facility] [id number] completed Influenza Vaccine Increased Antigen 07/23/2018 [facility] completed Influenza Vaccine Increased Antigen Adjuvant 07/22/2018 [facility] [id number] completed Influenza Vaccine Nasal 08/09/2017 [facility] [id number] ompleted Pneumovax-23 Vaccine 07/21/2016 [facility] comp leted Influenza Vaccine Increased Antigen Adjuvant 07/19/2016 [facility] [id number] completed Prevnar-13 Vaccine 07/03/2015 [facility] comple benjie Pneumovax-23 Vaccine 07/19/2013 [facility] comp leted Zoster (Shingles) Vaccine 01/13/2011 [facility] completed Hep B, Unspecified Formulation 05/13/2010 [facility] [id number] completed Td (Adult) Unspecified Formulation 02/21/2004 [facility] completed Assessment and Plan ID Update Date Source Alert Text [place] [employer]-[id number] 07/05/2023 [place] [facility] COVID Vaccination: This patient has received the MOD, COV-19,mRNA,LNP-S,PF,50mcg/0.5m , 2022 vaccination on 07/05/2023 with lot number [id number] at [facility] [id number] [facility]. [place] [facility]-[id number] 09/14/2022 [place] [facility] COVID Vaccination: This patient has received the MOD, COVID-19, mRNA, Bivalent, 0.5 or 0.25mL vaccination on 09/14/2022 with lot number [id number] at [facility] #[id number] - [id number] [facility]. [place] [facility]-[id number] 01/30/2022 [place] [facility] COVID Vaccination: This patient has received the MOD, COVID-19, mRNA, LNP-S, PF, 0.5mL vaccination on 01/30/2022 with lot number [id number] at [facility] #[id number] - [id number] [facility]. [place] [facility]-[id number] 05/27/2021 [place] [facility] COVID Vaccination: This patient has received the MOD, COVID-19, mRNA, LNP-S, PF, 0.5mL vaccination on 05/27/2021 with lot number [id number] at [facility] #[id number] - [id number] [facility]. [place] [employer]-[id number] 12/05/2020 [place] [facility] COVID Vaccination: This patient has received the MOD, COVID-19, mRNA, LNP-S, PF, 0.5mL vaccination on 12/05/2020 with lot number [id number] at [facility]. [id number] 11/06/2020 [place] [facility] COVID Vaccination: This patient has received the MOD, COVID-19, mRNA, LNP-S, PF, 0.5mL vaccination on 11/06/2020 with lot number [id number] at [facility]. Encounters Encounter Type Encounter Reason Primary Diagnosis Location Date Ambulatory Benign prostatic hyperplasia with lower urinary tract symptoms Benign prostatic hyperplasia with lower urinary tract symptoms [facility] 01/26/2024 Ambulatory FOLLOW UP MALIGNANT NEOPLA SM OF BASE OF TONGUE [facility] 12/31/2023 Ambulatory [facility] 12/31/2023 Ambulatory Hypothyroidism, unspecified Hypothyroidism, unspecified [facility] 12/27/2023 Ambulatory Type 2 diabetes mellitus without complications Type 2 diabetes mellitus without complications [facility] 12/24/2023 Ambulatory General Exam General Exam [facility] 12/08/2023 Ambulatory Meckel's diverticulu m (displaced) (hypertrophic) Meckel's diverticulum (displaced) (hypertrophic) [facility] 12/01/2023 Ambulatory Meckel's diverticulu m (displaced) (hypertrophic) Meckel's diverticulum (displaced) (hypertrophic) [facility] 11/23/2023 Ambulatory Diverticulosis of small intestine without perforation or abscess without bleeding Diverticulosis of small intestine without perforation or abscess without bleeding [facility] 11/17/2023 Ambulatory Encounter for follow-up examination after completed treatment for conditions other than malignant neoplasm Encounter for follow-up examination after completed treatment for conditions other than malignant neoplasm [facility] 11/09/2023 Emergency Diverticulitis of small intestine without perforation or abscess without bleeding Diverticulitis of small intestine without perforation or abscess without bleeding [facility] 11/08/2023 Ambulatory Obstructive sleep apnea (adult) (pediatric) Obstructive sleep apnea (adult) (pediatric) [facility] 11/04/2023 Ambulatory Benign prostatic hyperplasia with lower urinary tract symptoms Benign prostatic hyperplasia with lower urinary tract symptoms [facility] 10/28/2023 Emergency medical services Choking - Respiratory Airway Obstruction [id number] Ambulatory Nodular prostate wit h lower urinary tract symptoms Nodular prostate with lower urinary tract symptoms [facility] 10/20/2023 Ambulatory [facility] 10/20/2023 Ambulatory Morbid (severe) obesity due to excess calories Morbid (severe) obesity due to excess calories [facility] 09/09/2023 Ambulatory Spondylosis without myelopathy or radiculopathy, cervical region Spondylosis without myelopathy or radiculopathy, cervical region [facility] 07/14/2023 Ambulatory Type 2 diabetes mellitus without complications Type 2 diabetes mellitus without complications [facility] 06/29/2023 Ambulatory Cervicalgia Cervicalgia [facility] [place] 05/19/2023 Ambulatory Vertebrogenic low back pain Vertebrogenic low back pain [facility] [place] 05/14/2023 Ambulatory Benign prostatic hyperplasia with lower urinary tract symptoms [facility] 04/05/2023 Ambulatory Type 2 diabetes mellitus without complications [facility] 03/17/2023 Ambulatory Benign prostatic hyperplasia with lower urinary tract symptoms [facility] 02/18/2023 Ambulatory Malignant neopla sm of tongue, unspecified [facility] 01/27/2023 Ambulatory Dysphagia, unspecified [facility] 01/27/2023 Ambulatory [facility] 12/16/2022 Ambulatory [facility] 11/24/2022 Ambulatory [facility] 11/17/2022 Ambulatory [facility] 10/27/2022 Ambulatory [facility] [place] 08/31/2022 Ambulatory [facility] [place] 08/31/2022 Ambulatory Benign prostatic hyperplasia with lower urinary tract symptoms [facility] 08/19/2022 Ambulatory [facility] 08/06/2022 Ambulatory TNN Panel [facility] 08/03/2022 Ambulatory [facility] 08/03/2022 Ambulatory [facility] [place] 08/03/2022 Ambulatory [facility] [place] 07/15/2022 Ambulatory Hyperlipidemia, unspecified [facility] 07/08/2022 Ambulatory [facility] [place] 07/07/2022 Ambulatory [facility] 06/29/2022 Emergency [facility] [place] 06/27/2022 Emergency medical services Weakness - Medical Weakness [facility] 06/27/2022 Ambulatory [facility] 06/26/2022 Ambulatory Occlusion and stenosis of bilateral carotid arteries [facility] [place] 05/15/2022 Ambulatory [facility] 05/13/2022 [facility] 04/29/2022 Ambulatory Type 2 diabetes mellitus without complications [facility] 04/27/2022 Ambulatory [facility] 04/15/2022 Ambulatory [facility] 04/14/2022 Ambulatory Benign prostatic hyperplasia with lower urinary tract symptoms [facility] 03/30/2022 Ambulatory [facility] 03/04/2022 Ambulatory [facility] 03/03/2022 Ambulatory [facility] 03/02/2022 Ambulatory [facility] 03/02/2022 Ambulatory F/U [facility] 02/24/2022 Ambulatory [facility] 02/24/2022 Ambulatory T[facility] 02/23/2022 Ambulatory [facility] 02/11/2022 Ambulatory [facility] 02/10/2022 Ambulatory Obstructive slee p apnea (adult) (pediatric) [facility] 01/13/2022 Ambulatory [facility] 01/05/2022 Ambulatory Obstructive slee p apnea (adult) (pediatric) [facility] 11/27/2021 Ambulatory Encounter for preprocedural laboratory examination [facility] 11/24/2021 Ambulatory [facility] 11/11/2021 Ambulatory Other specified counseling [facility] 11/10/2021 Ambulatory [facility] 10/16/2021 Ambulatory Insomnia [facility] 10/15/2021 Ambulatory [facility] 10/02/2021 Ambulatory [facility] 10/02/2021 Ambulatory [facility] 10/02/2021 Ambulatory [facility] 10/02/2021 Ambulatory [facility] 09/24/2021 Ambulatory [facility] 09/24/2021 Ambulatory [facility] 09/15/2021 Ambulatory [facility] 08/25/2021 Ambulatory [facility] 08/21/2021 Ambulatory [facility] 08/19/2021 Ambulatory [facility] 08/18/2021 Ambulatory [facility] 08/18/2021 Ambulatory Mixed hyperlipidemia [facility] 08/13/2021 Ambulatory [facility] 07/31/2021 Ambulatory [facility] 06/23/2021 Ambulatory [facility] 06/23/2021 Care Team Organization Name Specialty Phone Email Start Date End [facility] MITCHELLTEODORAContreras 10/30/2024 [facility] EDWARD CANALES ABBI Primary Care MITCHELLDANIELBENNY 10/14/2024 10/23/19 25 [facility] 04/03/2024 [facility] EDWARD GO MD Primary Care 12/30/2023 [facility] Discharges MAUREEN FELIPE Primary Care mihaela 11/17/2023 02/15/20 24 [facility] NEMSIS Panel MAUREEN FELIPE Primary Care mihaela 11/08/2023 01/18/20 24 [facility] MAUREEN FELIPE Primary Care [email or web address] 10/31/2023 03/25/20 24 [facility] 10/23/202305/29 24 [facility] Value Based Care 08/05/2023 04/03/20 25 [facility] JHONY RAMSEY Primary Care [email or web address] 08/13/2022 [facility] 06/27/2022 [facility] 02/24/2022 05/29/20 24 [facility] V[facility] SENINGEN MAUREEN Primary Care 02/11/2022 05/29/20 24 [facility]BRITTANEY TARSHA Primary Care 02/11/2022 05/29/20 24 [facility]BRITT[facility] TARSHA Primary Care 02/11/2022 [facility] 01/09/202102/24 22 [facility] MAUREEN FELIPE Primary Care mihaela 10/22/2020 08/03/20 22 [facility] MARY VILLASEÑOR Primary Care ZAC 10/22/2020 08/03/20 22 [facility] JHONY YUDY RAMSEY Primary Care [email or web address] 10/22/2020 08/03/20 22 [facility] JHONY BRAULIO Primary Care 0 12/22/2019 12/22/19 [facility] 12/12/201912/11 [facility] MAUREEN FELIPE Primary Care [email or web address] 03/14/2019 08/31/20 22 [facility] MARY VILLASEÑOR Primary Care [email or web address] 03/14/2019 08/31/20 22 [facility] JHONY RAMSEY Primary Care [email or web address] 03/14/2019 08/31/20 22 [facility] CHARLEEN [id number] Primary Care 02/28/2019 11/12/19 23 [facility] MAUREEN FELIPE Primary Care [email or web address] 02/28/2019 08/19/20 22 [facility] MARY VILLASEÑOR Primary Care ZAC [email or web address] 02/28/2019 08/19/20 22 [facility] JHONY RAMSEY Primary Care [email or web address] 02/28/2019 08/19/20 22 [facility] BRAULIO [id number] Primary Care 02/28/2019 08/19/20 22
--- NOTE | 2025-06-21 | ECG_ITS ---
Test Reason : AMBER, DM, PREOP Blood Pressure : */* mmHG Vent. Rate : 57 BPM Atrial Rate : 57 BPM P-R Int : 180 ms QRS Dur : 90 ms QT Int : 402 ms P-R-T Axes : 35 -34 28 degrees QTcB Int : 391 ms Sinus bradycardia Left axis deviation Septal infarct , age undetermined Abnormal ECG No previous ECGs available Referred By: Brii Silver Electronically Signed By: MARV ANDERSON MD
[2025-06-21 10:13] VITALS: BP 117/59; PULSE 62; RESP 16; O2SAT 96; BMI 37.6
[2025-06-21 12:17] LABS: Hematocrit 44.3 % (42.0-52.0); Hemoglobin 14.6 g/dl (14.0-18.0); Mean Corpuscular HGB Conc 33.0 g/dl (31.0-36.0); Mean Corpuscular Hemoglobin 30.0 pg (27.0-33.0); Mean Corpuscular Volume 91.2 fL (80.0-98.0); NRBC Abs Auto 0.000 X10*3/uL (0.0-0.012); NRBC Pct Auto 0.0 /100WBC (0.0-0.2); Platelet Count 270 X10*3/uL (160-400); Red Blood Count 4.86 X10*6/uL (4.60-5.80); White Blood Count 6.9 X10*3/uL (4.8-10.8)
[2025-06-21 12:48] LABS: Anion Gap 10 (12-20); Blood Urea Nitrogen 16 mg/dL (9-16); Calcium 8.8 mg/dL (8.4-10.2); Carbon Dioxide 25 mmol/L (22-29); Chloride 108 mmol/L (96-108); Creatinine Clr Calc Pharmacy 84.0; Estimated Glomerular Filt Rate > 60; Potassium 4.4 mmol/L (3.3-5.1); Sodium 139 mmol/L (135-145)
--- NOTE | 2025-07-03 15:17 | P.DS_ITS ---
DS: Providers Provider Date of Service: 07/05/25 Date of discharge: 07/05/25 Primary care physician: Unknown Physician Admitting clinician: Rigo Dudley DS: Diagnosis Discharge Diagnosis (1) Lumbar stenosis with neurogenic claudication: Status: Acute DS: Summary Time Attestation Discharge Coordination Time (in mins): 6 Quality: Safe Use of Opioids Does Pt have an Active Cancer Diagnosis on the Problem List?: No Quality: Stroke Does the patient have a stroke diagnosis?: No Physical Exam Vital Signs: Vital Signs: Last Vital Signs Pulse 62 06/21/25 10:13 Resp 16 06/21/25 10:13 BP 117/59 L 06/21/25 10:13 Pulse Ox 96 06/21/25 10:13 O2 Del Method Room Air 06/21/25 10:13 BMI result Body Mass Index 37.6 Discharge Plan Discharge Patient Disposition: Home, Self-Care Referrals: Physician,Unknown J [Primary Care Provider, Medical] - 1 Week Discharge Medications: New docusate sodium [Colace] 100 mg capsule 100 mg PO BID Qty: 20 0RF oxycodone 5 mg tablet 5 mg PO Q4H PRN (Reason: pain) Qty: 20 0RF Rx Instructions: Partial Fill upon patient request. Continued latanoprost 0.005 % drops 1 drp ophthalmic (eye) QPM atorvastatin 40 mg tablet 40 mg PO DAILY metformin 500 mg tablet 500 mg PO QPM alprazolam 1 mg tablet 1 mg PO BEDTIME valacyclovir 1 gram tablet 1,000 mg PO Q12H PRN (Reason: Cold Sores) clobetasol 0.05 % gel topical PRN (Reason: Skin Irritation) tamsulosin 0.4 mg capsule 0.8 mg PO BEDTIME trazodone 100 mg tablet 200 mg PO QPM levothyroxine 125 mcg tablet 125 mcg PO BEDTIME zafirlukast 20 mg tablet 20 mg PO BID omeprazole 20 mg capsule,delayed release(DR/EC) 40 mg PO QPM azelastine 137 mcg (0.1 %) spray,non-aerosol 2 spray intranasal BID PRN (Reason: Nasal Congestion) albuterol sulfate 90 mcg/actuation HFA aerosol inhaler 2 puff inhalation Q4H PRN (Reason: wheezing) timolol maleate 0.5 % drops 1 drp ophthalmic (eye) Q12H celecoxib 100 mg capsule 100 mg PO DAILY PRN (Reason: Pain) tadalafil 20 mg tablet 20 mg PO DAILY PRN (Reason: Sexual Activity) fluticasone furoate-vilanterol [Breo Ellipta] 100-25 mcg/dose blister with device 1 ea inhalation DAILY Ozempic 0.25 mg or 0.5 mg (2 mg/3 mL) pen injector 0.5 mg SUBCUT QWEEK Zyrtec 10 mg Capsule 10 mg PO DAILY flaxseed oil 1,000 mg Capsule 1,000 mg PO DAILY Rx Instructions: administer with a meal Held aspirin 81 mg Tablet 81 mg PO DAILY Hold Instructions: Resume on 07/12/25. You can resume your aspirin one week after surgery Discharge Orders: Discharge Order (Routine); Ordered 07/05/25 Ordered By: Lázaro Novak Diet: Advance to usual diet Activity on Discharge: As tolerated Activity Restrictions/Additional Instructions: After your spinal surgery we ask you to observe the following restrictions/guidelines: Activity: It is normal to feel some discomfort as you increase your activity, but that w ill improve with time. We ask you avoid heavy lifting or acitivities that cause pain. As a general rule, 8lbs is a safe limit for lifting right after surgery. Walk as much as you feel comfortable but not to exhaustion. You will feel extra tired the first few days after surgery. Stay well hydrated. It is OK to walk up and down stairs You may return to driving when you are off narcotics (such as vicodin, oxycodone, dilaudid, etc), and you are back to normal functional capacity. If you have any concerns please check with office before driving. Return to work is specific to each patient and each surgery, so please speak with your doctor/PA at first follow up. Please bring paperwork such as FMLA at that time if you need it filled out. Medications: You can resume your aspirin 1 week after surgery For optimum pain control, it is best to start with a combination of 500 mg of Tylenol every 4 hours with 600 mg of Motrin every 8 hours, and use narcotics as needed in between for breakthrough pain. We will give you a short supply of narcotics after surgery (usually one weeks worth). If you need more please call the office but do not use more than pre scribed. You will need to give our office 48 hours notice if you need narcotics refilled and we do not fill narcotics on weekends or evenings. If you are on a narcotic, it is a good idea to take a stool softener such as colace or senna to avoid constipation If you take blood thinner such as aspirin, Plavix, Coumadin, Effient, Eliquis etc for conditions such as Afib, DVT, Pulmonary embolus, coronary disease, stents etc please speak with your surgeon about specific details as to when you can resume these medications. Follow up: Please call the office, , after surgery to arrange a 3 week follow up for wound check. Wound Care: You may remove your dressing on the first day after surgery. ?You may ?leave open to air. Please do not remove the steri strips underneath. they will fall off on their own in one week. IT IS NORMAL FOR THE WOUND TO OOZE OR BE BLOODY FOR A FEW DAYS AFTER SURGERY. ?IF THIS HAPPENS JUST PLACE NEW DRESSING OVER IT TO AVOID STAINING CLOTHES. You may shower on post op day # 1 We ask that you do not let the water soak the wound. If it does get wet, just towel dry lightly. Please do not scrub your incision or place any type of chemical/ointment on the wound. No tub baths, pools or jacuzzis for one month. If you have any leaking or redness from your wound, or fevers, please call office Print Language: Vietnamese
[2025-07-05] VITALS (9 sets, daily range): BP systolic 99–128; BP diastolic 42–64; PULSE 53–67; RESP 12–16; TEMP 36.1–36.6; O2SAT 95–99
--- NOTE | ~2025-07-05 | FL_ITS ---
EXAMINATION: FL GUIDANCE ONLY HISTORY: L4-5 DECOMPRESSION COMPARISON: Correlation is made with plain films of the lumbar spine dated 03/07/2025. TECHNIQUE: Fluoroscopy time: 9 seconds. Cumulative Dose: 8.00 mGy. DAP: 215.67 uGym2 Images: 11. FINDINGS: Multiple fluoroscopic spot films of the lumbar spine in the lateral projection demonstrate a probe at L4-5 level. FL/FL guidance in OR IMPRESSION: Fluoroscopy during procedure. Please see procedure report for additional information. Electronically signed by: Seth Burks MD 07/05/2025 11:15 AM EDT
[2025-07-05] MEDS: Lactated Ringers 1,000 ML 100 ML IVCONT (07:43)
[2025-07-05 08:01] LABS: Glucose, Whole Blood 108 mg/dL (60-115)
--- NOTE | 2025-07-05 08:12 | HO.ANESPROP2 ---
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 Xeorostomia, epiglotis stenosis, difficulty swallowing thin liquids with some aspiration - no pneumonia since chemo ([place] with [facility] 2019 in [place] - no DI per patient report Encouraged martinez trim for surgery and pt agreeable Anesthesia Pre-Procedure Meds Is the patient on any of the following meds?: GLP1/DPP4 PMFSH Active Problems Active Problems: All Active Problems Lumbar stenosis with neurogenic claudication (Acute) Past Medical History Medical History (Updated 06/21/25 @ 11:08 by Amparo Edwards RN) History of chemotherapy (2012) Hx of radiation therapy (2012) AMBER treated with BiPAP Hx of bacterial infection (2003) Hx of squamous cell carcinoma (2012) Spinal stenosis Arthritis Back pain Hypothyroidism Hiatal hernia Diabetes GERD (gastroesophageal reflux disease) Teeth missing Asthma HLD (hyperlipidemia) HTN (hypertension) Family History Family history of problems with anesthesia: No Surgical History Surgical History (Updated 06/21/25 @ 10:43 by Amparo Edwards, KAVON) Hx of arthroscopy of left knee History of carpal tunnel release (05/31/25) Hx of colonoscopy History of esophagogastroduodenoscopy (EGD) Hx of bilateral cataract extraction History of gastric surgery (2003) History of left hip replacement (2019) History of bilateral knee replacement (2001) History of Problems with Anesthesia: No Social History Social History (Updated 06/21/25 @ 10:23 by Amparo Edwards RN) Household Members: Spouse Housing: House Are you a primary home care rn to a significant other at home: No Do you presently have visiting nurse or other home services: No Patient Tobacco Use Status: Former Tobacco user Tobacco use type: Cigarette Smoked in Last 30 Days: No Use of substances other than those prescribed or required for medical reasons: Yes Substance Use Type: Marijuana Substance Use Type Other:: marijuana 2 x week Substance Use Frequency: Weekly Have you been hit, kicked, punched, or otherwise hurt by someone within the past year? If so, by whom?: No Are you DNR?: No Advance Directives: No (will bring dos) Advance Directives Information Provided: Yes Advance Directives on File: No Poor oral hygiene: Yes (lower partial) Meds Allergies Allergy/AdvReac Type Severity Reaction Status Date / Time No Known Allergies Allergy Verified 03/07/25 13:18 Home Medications ?Medication ?Instructions ?Recorded ?Confirmed ?Last Taken ?Type albuterol sulfate 90 mcg/actuation 2 puff inhalation Q4H PRN wheezing 06/20/25 07/05/25 07/05/25 History aerosol inhaler alprazolam 1 mg tablet 1 mg PO BEDTIME 06/20/25 07/05/25 Unknown History atorvastatin 40 mg tablet 40 mg PO DAILY cholesterol 06/20/25 07/05/25 Unknown History azelastine 137 mcg (0.1 %) nasal 2 spray intranasal BID PRN Nasal 06/20/25 07/05/25 Unknown History spray Congestion celecoxib 100 mg capsule 100 mg PO DAILY PRN Pain 06/20/25 07/05/25 06/26/25 History clobetasol 0.05 % topical gel topical PRN Skin Irritation 06/20/25 Unknown History fluticasone furoate 100 1 ea inhalation DAILY 06/20/25 07/05/25 Unknown History mcg-vilanterol 25 mcg/dose inhalation powder (Breo Ellipta) latanoprost 0.005 % eye drops 1 drp ophthalmic (eye) QPM 06/20/25 07/05/25 Unknown History levothyroxine 125 mcg tablet 125 mcg PO BEDTIME 06/20/25 07/05/25 Unknown History metformin 500 mg tablet 500 mg PO QPM diabetes mellitus 06/20/25 07/05/25 Unknown History omeprazole 20 mg capsule,delayed 40 mg PO QPM 06/20/25 07/05/25 Unknown History release semaglutide 0.25 mg or 0.5 mg (2 0.5 mg subcut QWEEK 06/20/25 07/05/25 06/24/25 History mg/3 mL) subcutaneous pen injector (Ozempic) tadalafil 20 mg tablet 20 mg PO DAILY PRN Sexual Activity 06/20/25 07/05/25 Unknown History tamsulosin 0.4 mg capsule 0.8 mg PO BEDTIME 06/20/25 07/05/25 Unknown History timolol maleate 0.5 % eye drops 1 drp ophthalmic (eye) Q12H 06/20/25 07/05/25 Unknown History trazodone 100 mg tablet 200 mg PO QPM insomnia 06/20/25 07/05/25 Unknown History valacyclovir 1 gram tablet 1,000 mg PO Q12H PRN Cold Sores 06/20/25 07/05/25 Unknown History zafirlukast 20 mg tablet 20 mg PO BID 06/20/25 07/05/25 Unknown History aspirin 81 mg tablet 81 mg PO DAILY 06/21/25 07/05/25 06/28/25 History Held on 07/03/25. Instructions: Resume on 07/12/25. You can resume your aspirin one week after surgery cetirizine 10 mg capsule (Zyrtec) 10 mg PO DAILY 06/21/25 07/05/25 Unknown History flaxseed oil 1,000 mg capsule 1,000 mg PO DAILY 06/21/25 07/05/25 Unknown History Exam Height,Weight and Vital Signs: Height 5 ft 7 in Weight 108.862 kg Last Vital Signs Pulse 62 06/21/25 10:13 Resp 16 06/21/25 10:13 BP 117/59 L 06/21/25 10:13 Pulse Ox 96 06/21/25 10:13 O2 Del Method Room Air 06/21/25 10:13 Pertinent Lab Results Pertinent Lab Results: Lab Results 06/21/25 Range/Units 11:37 WBC 6.9 (4.8-10.8) X10*3/uL RBC 4.86 (4.60-5.80) X10*6/uL Hgb 14.6 (14.0-18.0) g/dl Hct 44.3 (42.0-52.0) % MCV 91.2 (80.0-98.0) fL MCH 30.0 (27.0-33.0) pg MCHC 33.0 (31.0-36.0) g/dl RDW 14.6 (11.0-16.0) % Plt Count 270 (160-400) X10*3/uL MPV 9.8 (9.4-12.4) fL Absolute Nucleated RBC 0.000 (0.0-0.012) X10*3/uL Nucleated RBC % (auto) 0.0 (0.0-0.2) /100WBC Sodium 139 (135-145) mmol/L Potassium 4.4 (3.3-5.1) mmol/L Chloride 108 (96-108) mmol/L Carbon Dioxide 25 (22-29) mmol/L Anion Gap 10 L (12-20) BUN 16 (9-16) mg/dL Creatinine 0.88 (0.5-1.4) mg/dL Estim Creat Clear Calc 84.0 Estimated GFR > 60 Random Glucose 102 (60-115) mg/dL Calcium 8.8 (8.4-10.2) mg/dL Narrative Narrative: EKG 06/2025 Vent. Rate : 57 BPM Atrial Rate : 57 BPM P-R Int : 180 ms QRS Dur : 90 ms QT Int : 402 ms P-R-T Axes : 35 -34 28 degrees QTcB Int : 391 ms Sinus bradycardia Left axis deviation Septal infarct , age undetermined Abnormal ECG No previous ECGs available Airway Mallampati Class: III Neck ROM: Limited Loose/Missing/Broken Teeth: Yes (missing throughout - denies loose/broken) Heart: RRR Lungs: CTAB Assessment and Plan Assessment Anesthesia Assessment: Anesthesia Plan Discussed and PAT Visit Final Anesthetic Review Family History of Problems with Anesthesia: No History of Problems with Anesthesia: No Documented by User: Tejal Otero DO 07/05/25 08:16 HPI - Anesthesia Eval Consult details Narrative: Lázaro 74yo M for L4-5 Lumbar Decompression, 07/05/25 No recent illness No CP/SOB with stacking firewood Abnormal EKG reviewed by PCP - in absence of chest pain, ok to proceed AMBER: Bipap QHS DM: FBS ~105-110 GERD: ppi controls Asthma: seasonal, Breo daily in winter, rare albuterol 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 Xeorostomia, epiglotis stenosis, difficulty swallowing thin liquids with some aspiration - no pneumonia since chemo Anesthesia Pre-Procedure Meds Is the patient on any of the following meds?: GLP1/DPP4 PMFSH Past Medical History Medical History (Updated 06/21/25 @ 11:08 by Amparo Edwards, RN) History of chemotherapy (2012) Hx of radiation therapy (2012) AMBER treated with BiPAP Hx of bacterial infection (2003) Hx of squamous cell carcinoma (2012) Spinal stenosis Arthritis Back pain Hypothyroidism Hiatal hernia Diabetes GERD (gastroesophageal reflux disease) Teeth missing Asthma HLD (hyperlipidemia) HTN (hypertension) Family History Family history of problems with anesthesia: No Surgical History Surgical History (Updated 06/21/25 @ 10:43 by Amparo Edwards RN) Hx of arthroscopy of left knee History of carpal tunnel release (05/31/25) Hx of colonoscopy History of esophagogastroduodenoscopy (EGD) Hx of bilateral cataract extraction History of gastric surgery (2003) History of left hip replacement (2019) History of bilateral knee replacement (2001) History of Problems with Anesthesia: No Social History Social History (Updated 06/21/25 @ 10:23 by Amparo Edwards RN) Household Members: Spouse Housing: House Are you a primary home care rn to a significant other at home: No Do you presently have visiting nurse or other home services: No Patient Tobacco Use Status: Former Tobacco user Tobacco use type: Cigarette Smoked in Last 30 Days: No Use of substances other than those prescribed or required for medical reasons: Yes Substance Use Type: Marijuana Substance Use Type Other:: marijuana 2 x week Substance Use Frequency: Weekly Have you been hit, kicked, punched, or otherwise hurt by someone within the past year? If so, by whom?: No Are you DNR?: No Advance Directives: No (will bring dos) Advance Directives Information Provided: Yes Advance Directives on File: No Poor oral hygiene: Yes (lower partial) Meds Allergies Allergy/AdvReac Type Severity Reaction Status Date / Time No Known Allergies Allergy Verified 03/07/25 13:18 Home Medications ?Medication ?Instructions ?Recorded ?Confirmed ?Last Taken ?Type albuterol sulfate 90 mcg/actuation 2 puff inhalation Q4H PRN wheezing 06/20/25 07/05/25 07/05/25 History aerosol inhaler alprazolam 1 mg tablet 1 mg PO BEDTIME 06/20/25 07/05/25 Unknown History atorvastatin 40 mg tablet 40 mg PO DAILY cholesterol 06/20/25 07/05/25 Unknown History azelastine 137 mcg (0.1 %) nasal 2 spray intranasal BID PRN Nasal 06/20/25 07/05/25 Unknown History spray Congestion celecoxib 100 mg capsule 100 mg PO DAILY PRN Pain 06/20/25 07/05/25 06/26/25 History clobetasol 0.05 % topical gel topical PRN Skin Irritation 06/20/25 Unknown History fluticasone furoate 100 1 ea inhalation DAILY 06/20/25 07/05/25 Unknown History mcg-vilanterol 25 mcg/dose inhalation powder (Breo Ellipta) latanoprost 0.005 % eye drops 1 drp ophthalmic (eye) QPM 06/20/25 07/05/25 Unknown History levothyroxine 125 mcg tablet 125 mcg PO BEDTIME 06/20/25 07/05/25 Unknown History metformin 500 mg tablet 500 mg PO QPM diabetes mellitus 06/20/25 07/05/25 Unknown History omeprazole 20 mg capsule,delayed 40 mg PO QPM 06/20/25 07/05/25 Unknown History release semaglutide 0.25 mg or 0.5 mg (2 0.5 mg subcut QWEEK 06/20/25 07/05/25 06/24/25 History mg/3 mL) subcutaneous pen injector (Ozempic) tadalafil 20 mg tablet 20 mg PO DAILY PRN Sexual Activity 06/20/25 07/05/25 Unknown History tamsulosin 0.4 mg capsule 0.8 mg PO BEDTIME 06/20/25 07/05/25 Unknown History timolol maleate 0.5 % eye drops 1 drp ophthalmic (eye) Q12H 06/20/25 07/05/25 Unknown History trazodone 100 mg tablet 200 mg PO QPM insomnia 06/20/25 07/05/25 Unknown History valacyclovir 1 gram tablet 1,000 mg PO Q12H PRN Cold Sores 06/20/25 07/05/25 Unknown History zafirlukast 20 mg tablet 20 mg PO BID 06/20/25 07/05/25 Unknown History aspirin 81 mg tablet 81 mg PO DAILY 06/21/25 07/05/25 06/28/25 History Held on 07/03/25. Instructions: Resume on 07/12/25. You can resume your aspirin one week after surgery cetirizine 10 mg capsule (Zyrtec) 10 mg PO DAILY 06/21/25 07/05/25 Unknown History flaxseed oil 1,000 mg capsule 1,000 mg PO DAILY 06/21/25 07/05/25 Unknown History Exam Exam Date and Time: 07/05/25 0813 Height,Weight and Vital Signs: Height 5 ft 7 in Weight 108.862 kg Last Vital Signs Pulse 62 06/21/25 10:13 Resp 16 06/21/25 10:13 BP 117/59 L 06/21/25 10:13 Pulse Ox 96 06/21/25 10:13 O2 Del Method Room Air 06/21/25 10:13 Vital Signs Pulse Rate 62 06/21/25 10:13 Respiratory Rate 16 06/21/25 10:13 Blood Pressure 117/59 L 06/21/25 10:13 Pulse Oximetry 96 06/21/25 10:13 Oxygen Delivery Method Room Air 06/21/25 10:13 Temperature 97.9 F 07/05/25 07:36 Pulse Rate 53 07/05/25 07:36 Respiratory Rate 16 07/05/25 07:36 Blood Pressure 99/42 L 07/05/25 07:36 Pulse Oximetry 95 07/05/25 07:36 Oxygen Delivery Method Room Air 07/05/25 07:36 Airway Mallampati Class: III TM Dist: <=3cm Neck ROM: Limited Partial: Lower Loose/Missing/Broken Teeth: Yes (missing throughout - denies any loose or broken teeth) Heart: S1S2 Assessment and Plan Assessment Anesthesia Assessment: Anesthesia Plan Discussed and Chart Reviewed Final Anesthetic Review Family History of Problems with Anesthesia: No History of Problems with Anesthesia: No NPO: Yes ASA Class: III Final Preanesthetic Review: No Changes in Pt Med Stat, Meds/Allgs Chart Reviewed, Consent Obtained/Reviewed and Anes Risks/Benef Reviewed Patient Risk: Intermediate Procedure Risk: Intermediate Anesthetic Plan Anesthetic Plan: GA and Agree w/ Assess. and Plan Disposition: Standard PACU
--- NOTE | 2025-07-05 08:50 | P.HPSUR_ITS ---
Pre-Procedural Eval Section A - 24 Hr Update-Section A only Date of Service: 07/05/25 The patient is an INPATIENT: No Changes since office visit: No Cold of Flu in the past 2 weeks, No New Medical Problems, No Changes in Medication and No Patient answered all questions The patient has been examined within 24 hours of the surgical procedure. The History & Physical has been completed within 30 days and I have reviewed it.: No Section B - Complete if H&P > 30 days Chief Complaint: Spinal stenosis, lumbar region with neurogenic cla Allergies: Allergies Allergy/AdvReac Type Severity Reaction Status Date / Time No Known Allergies Allergy Verified 03/07/25 13:18 Review of Systems Sugical H&P ROS: Negative: Constitution, Cardiovascular, Respiratory, Neurological, Psychiatric, Hem-Onc, Allergic/Immunologic, Gastrointestinal, Genitourinary, Musculoskeletal, Integumentary, Endocrine and Eyes/Ears/Nose/Thr oat Exam Surgical H&P Exam: Normal: HEENT, Normal: Heart, Normal: Lungs, Normal: Extremities, Normal: Abdomen, Normal: Skin and Normal: Neurological (awake, alert,oriented x 3 ) Plan Diagnosis/Plan: Unchanged L4-5 decompression Time Spent With Patient Time: Total time managing care of this patient today __4__ minutes.
--- NOTE | 2025-07-05 10:34 | P.OP_ITS ---
Operative Note Operative Note Date of Service: 07/05/25 Narrative: Preoperative Diagnosis: L4-5 spinal stenosis/lateral recess stenosis/neural foraminal stenosis Operation: L4-5 Laminotomy, Partial facetectomy and foraminotomy with use of microscope Consent Informed Consent was obtained for this operation. I have explained the nature, purpose and benefits of the operation. I have discussed the risks and benefit of the operation including possible complications or adverse events with patient/family. Alternative(s) were discussed with the patient with their relative benefits and risks as well as the consequences of not accepting the operation were included in obtaining consent. Surgeon: LUCIANO YAO MD, PHD Procedure Assisted By: Lázaro Vargas Description of Procedure This patient is suffering from neurogenic claudication. The MRI shows moderate L4-5 spinal stenosis. The patient was offered a decompression. The procedure complications were explained. The patient was consented. The patient was brought to the operating room and endotracheally intubated. The patient was turned in prone position on the Hilton spine table. Prep and drape was done followed by timeout. The Physician public relations assistant provided access. A mid lumbar incision was made followed by release of the paravertebral muscle on the left side to expose the L4-5 lamina and facet joints. An intraoperative x-ray was obtained to confirm the correct level. The x-rays showed a clear spondylolisthesis which was not visualized on a preoperative x-ray. The conclusion from this is that the patient is unstable at this level and may require fusion surgery in the future. The microscope was brought in. I took over the procedure. The high-speed drill was used to do a L4-5 laminotomy until flavum ligament was reached. A #2 Kerrison was used to expand the laminotomy near flush to the pedicles and to include a partial facetectomy. The flavum ligament was opened and resected with a #3 Kerrison to decompress the underlying thecal sac. The thecal sac had a red discoloration as seen in inflammation. The flavum ligament was removed to decompress the lateral recess and the exiting L5 nerve root. A long nerve hook could be easily passed along the medial side of the pedicle as a sign of adeq uate decompression. The spinous process was undercut and a long nerve hook could be easily passed along the contralateral side. The microscope was removed. Hemostasis was done. The physician public relations assistant close the Incision in 2 layers. Steri-Strips were used to approximate incision. An OpSite with Tegaderm was used to cover the incision. All sponge needle counts were correct. Patient was extubated and transported in stable is to recovery room. Anesthesia: General Estimated Blood Loss (ml): 15 Complications: None Duration of Surgery: Under 60 Minutes Postoperative Plan: Discharge to home
[2025-07-05] MEDS: oxyCODONE HCl Immed Release 5 MG TABLET PO (11:30)
== END 2025-07-05 12:42 | disposition home or self-care (01) ==
LOC: HO.SSS 07:03
PROVIDERS: Nurse Practitioner; Visit Provider Neurological Surgery
PROC: (CPT 63047; principal; 2025-07-05 09:00)
DX: M48.062 Spinal stenosis, lumbar region with neurogenic claudication (principal); R26.2 Difficulty in walking, not elsewhere classified; E78.00 Pure hypercholesterolemia, unspecified; E11.9 Type 2 diabetes mellitus without complications; E03.9 Hypothyroidism, unspecified; K21.9 Gastro-esophageal reflux disease without esophagitis; I10 Essential (primary) hypertension; K44.9 Diaphragmatic hernia without obstruction or gangrene; J45.909 Unspecified asthma, uncomplicated; G47.33 Obstructive sleep apnea (adult) (pediatric); Z85.810 Personal history of malignant neoplasm of tongue; Z92.3 Personal history of irradiation; Z92.21 Personal history of antineoplastic chemotherapy; Z79.84 Long term (current) use of oral hypoglycemic drugs; Z79.85 Long-term (current) use of injectable non-insulin antidiabetic drugs; Z79.899 Other long term (current) drug therapy; Z98.84 Bariatric surgery status; Z96.653 Presence of artificial knee joint, bilateral; Z96.642 Presence of left artificial hip joint; Z99.89 Dependence on other enabling machines and devices
CPT/HCPCS: 63047; 36415; 80048; 82947; 85027; 93005; J0131; J0330; J0690; J1100; J1885; J2003; J2250; J2405; J2704; J3010

== ENCOUNTER → 2025-07-05 07:02 | Outpatient (BNV) | payer MEDICARE, OTHER, SELFPAY | PROVIDERS: Visit Provider Neurological Surgery | DX: M48.062 Spinal stenosis, lumbar region with neurogenic claudication (principal) | CPT/HCPCS: 63047; 99499 ==

== ENCOUNTER 2025-07-25 11:47 | Outpatient (AMB) | payer MEDICARE, OTHER, SELFPAY ==
--- NOTE | 2025-07-25 12:22 | A.SPINEOV_ITS ---
Intake Visit Reasons: 1st post op Intake Note: Mr. Loja is here today for his 1st post op. Energy Director Required: No Allergies No Known Allergies Allergy (Verified 07/25/25 12:24) Assessment & Plan Assessment & Plan (1) Lumbar stenosis with neurogenic claudication: Code(s): M48.062 - Spinal stenosis, lumbar region with neurogenic claudication Category: Medical Plan Mr Loja is here in follow-up. He underwent an L4-5 decompression about 3 weeks ago. At the time of the surgery we noticed a spondylolisthesis that developed when he was in the prone position on the OR table. He tells me that his lower extremity symptoms have improved since surgery. He is slowly starting to walk longer distances but still does have some challenges with that. His wound is healed up nicely. He is looking forward to getting back to more activities. For now he is happy with how things are going any expect further improvement. I completely agree with him that we should give this more time and I think that will heal most of what is any residual symptoms that he has. If he develops further symptoms down the road obviously we have to consider the possibility of fusion but for right now he is doing too well and it is too early postop to even think about that. We discussed activity guidelines, restrictions and expectations after lumbar decompression. I will see him back in 4 weeks to reassess. Lázaro Dudley MD, PhD [facility] [place] [facility] Coding Level of Care Code Global (01012) Diagnoses Lumbar stenosis with neurogenic claudication M48.062
--- OUTSIDE RECORDS SUMMARY | 2025-07-25 14:59 | XMS_ITS | Encounter Summary ---
Author Organization [facility] Address [address] [place] [address] Phone Care Team Providers Care Hand Printed Circuit Board Assembler Name Role Phone Pcp, Unknown Primary Care Provider Sonja Shaw NP Primary Care Provider [phone] Encounter Details Date Type Department Care Team (Late st Contact Info) Description 05/09/2024 Procedure Pass [facility] Admitting Dept Virtual Department [address] [place] [address] Social History Tobacco Use Types Packs/Day Years [...] AM EDT documented as of this encounter Plan of Treatment Upcoming Encounters Date Type Department Care Team (Late st Contact Info) Description 10/09/2025 10:15 AM EST Office Visit [facility] [address] [place] [address] 3rd Floor, [address] [place] [address] Chilo Kuo MD [address] [place] [address], [address] [place] [address] [email or web address] documented as of this encounter Visit Diagnoses Not on filedocumented in this encounter Care Teams Hand Printed Circuit Board Assembler Relationship Specialty Start Date End Date Pcp, Unknown PCP - General 01/18/24 09/19/24 Sonja David NP [address] [place] [id number] PCP - General Nurse Practitioner 09/20/24 documented as of this encounter Additional Source Comments The information contained in this document represents components of the legal health record. It is not the complete legal health record.[facility]
--- OUTSIDE RECORDS SUMMARY | 2025-07-25 14:59 | XMS_ITS | Clinical Summary ---
Author Organization [facility] Address [address] [place] [address] Phone Care Team Providers Care Mathematical Engineering Technician Name Role Phone Sonja David NP Primary Care Provider [phone] [phone] Allergies Active Allergy Reactions Criticality Noted Date Comments Latex 04/24/2015 Medications atorvastatin (LIPITOR) 40 MG tablet Take 1 tablet by mouth every morning. 04/01/20 24 Active fluticasone propionate (FLONASE) 50 mcg/actuation nasal spray 2 sprays by Nasal route as needed. 02/29/20 24 Active fluoride, sodium, (PREVIDENT) 1.1 % Gel APPLY TO TEETH DAILY DIRECTED 03/27/20 24 Active latanoprost (XALATAN) 0.005 % ophthalmic solution INSTILL 1 DROP INTO BOTH EYES EVERY EVENING DIRECTED 04/21/20 24 Active levothyroxine (SYNTHROID, LEVOTHROID) 125 MCG tablet Take 1 tablet by mouth every morning. 04/01/20 24 Active metFORMIN (GLUCOPHAGE-XR) 500 MG 24 hr tablet Take 500 mg by mouth nightly at bedtime. 04/21/20 24 Active omeprazole (PRILOSEC) 40 MG capsule Take 40 mg by mouth daily. 04/21/20 24 Active tamsulosin (FLOMAX) 0.4 mg Cap Take 2 capsules by mouth every morning. 04/01/20 24 Active selenium sulfide 2.5 % lotion WASH AFFECTED AREA EVERY OTHER DAY 04/21/20 24 Active traZODone (DESYREL) 100 MG tablet Take 200 mg by mouth nightly at bedtime. 04/01/20 24 Active aspirin 81 MG EC tablet Take 81 mg by mouth daily. Active cetirizine (ZYRTEC) 10 MG tablet Take 10 mg by mouth daily. Active magnesium oxide 250 mg (150 mg elemental) Tab Take 250 mg by mouth daily. Active cholecalciferol (VITAMIN D3) 25 MCG (1,000 unit) tablet Take 1,000 Units by mouth daily. Active omega-3 fatty acids-fish oil 340-1,000 mg Cap Take by mouth daily. Active turmeric/turmer ic ext/pepr ext (TURMERIC-TURME CHRISTOPH EXT-PEPPER) 500-3 mg Cap Take by mouth. Active acetaminophen-c odeine (TYLENOL #3) 300-30 mg per tablet Take 1 tablet by mouth every 6 (six) hours as needed. Active ALPRAZolam (XANAX) 0.25 MG tablet Take 1 tablet by mouth daily as needed. Active famotidine (PEPCID) 40 MG tablet Take 1 tablet by mouth as needed. Active L. acidophilus/Bif id. animalis 32 billion cell Cap Take 1 capsule by mouth daily. Active OZEMPIC 0.25 mg or 0.5 mg (2 mg/3 mL) subcutaneous injection pen 0.5 mg every 7 days. Active tadalafiL (CIALIS) 20 MG tablet Take 1 tablet by mouth as needed. 10/06/20 24 Active timolol (TIMOPTIC) 0.5 % ophthalmic solution INSTILL 1 DROP INTO BOTH EYES EVERY MORNING 09/13/20 24 Active tiZANidine (ZANAFLEX) 2 MG tablet Take 1 tablet by mouth 2 (two) times a day as needed. Active valACYclovir (VALTREX) 1000 MG tablet TAKE 2 TABLETS BY MOUTH TWICE DAILY FOR 1 DAY AT INITIAL ONSET OF COLD SORE. NOT TO EXCEED 4 TABLETS IN 24 HOURS 12/27/19 24 Active azelastine (ASTELIN) 137 mcg (0.1 %) nasal spray 1 spray by Nasal route 2 (two) times a day. Use in each nostril as directed Active zafirlukast (ACCOLATE) 20 MG tablet Take 1 tablet (20 mg total) by mouth 2 (two) times a day. 60 tablet 11 11/01/19 25 Active celecoxib (CELEBREX) 100 MG capsule Take 1 mg by mouth as needed. Active cephalexin (KEFLEX) 500 MG capsule as needed. 01/06/20 25 Active albuterol 90 mcg/actuation inhaler Inhale 2 puffs into the lungs every 4 (four) hours as needed for wheezing or shortness of breath/dyspn ea. 18 g 11 01/10/20 25 Active clobetasol (TEMOVATE) 0.05 % Gel Apply topically as needed. 04/10/20 25 Active albuterol-budes onide (AIRSUPRA) 90-80 mcg/actuation inhaler Inhale 2 puffs into the lungs as needed for shortness of breath/dyspn ea. 10.7 g 11 06/27/20 25 Active fluticasone furoate-vilante roL (BREO ELLIPTA) 100-25 mcg/dose inhaler Inhale 1 puff into the lungs daily. 3 each 3 11/01/19 25 025 Discontinued(Re order) fluticasone furoate-vilante roL (BREO ELLIPTA) 100-25 mcg/dose inhaler Inhale 1 puff into the lungs daily. 1 each 06/27/20 25 025 Discontinued Encounters Date Type Department Care Team Description 2025 Telephone [facility] [address] [place] [address] [address]rd Floor, [address] [place], [place] [id number] Chilo Kuo MD 06/27/2025 2:15 PM EDT Office Visit [facility] [address] Floor, [address] [place] [address] Chilo Kuo MD Moderate persistent asthma without complication (Primary Dx); AMBER treated with BiPAP from Last 3 Months Social History Tobacco Use Types Packs/Day Years Used Date Smoking Tobacco: Former Cigarettes Q uit: 2003 Smokeless Tobacco: Never Tobacco Cessation:Counseling Given: Not Answered Alcohol Use Standard Drinks/Week Comments Yes 7 [...] Orientation Straight 04/20/2024 7: 44 AM EDT Last Filed Vital Signs Vital Sign Reading Time Taken Comments Blood Pressure 112/72 06/27/2025 2:24 PM EDT Pulse 68 06/27/2025 2:24 PM EDT Temperature 36.4 C (97.5 F) 05/09/2024 1:44 PM EDT Respiratory Rate 16 05/09/2024 2:00 PM EDT Oxygen Saturation 96% 06/27/2025 2:24 PM EDT Inhaled Oxygen Concentration - - Weight 108 kg (238 lb) 06/27/2025 2:24 PM EDT Height 170.2 cm (5' 7 ) 06/27/2025 2:24 PM EDT Body Mass Index 37.28 06/27/2025 2:24 PM EDT Plan of Treatment Upcoming Encounters Date Type Department Care Team (Late st Contact Info) Description 10/09/2025 10:15 AM EST Office Visit [facility] [address] [place] [address] 3rd Floor, [address] [place], [place] [id number] Chilo Kuo MD [address] [facility], [address] [place] [address] [email or web address] Health Maintenance Due Date Last Done Comments Adult Td,Tdap Booster 1948 CREATININE LEVEL 1948 DEPRESSION SCREENING 1960 HEPATITIS C SCREENING 1966 PNEUMOCOCCAL VACCINES (50+ years) (1 of 2 - PCV) 1967 ZOSTER VACCINES (1 of 2) 1998 RSV VACCINE (1 - 1-dose 75+ series) 2023 TSH LEVEL 08/03/2023 08/03/2022, 11/0 12/2020, 11/14/2020, Additional history exists INFLUENZA VACCINE (#1) 2025 COVID-19 VACCINE ( - season) 2025 SMOKING Hx and SMOKELESS TOBACCO SCREENING 06/27/2026 06/27/2025 LIPID PANEL 12/23/2028 12/24/2023 HEPATITIS A VACCINES Aged Out No long er eligible based on patient's age to complete this topic HIB VACCINES Aged Out No longer eligi ble based on patient's age to complete this topic MENINGOCOCCAL VACCINES (ACWY) Aged Out No longer eligible based on patient's age to complete this topic MENINGOCOCCAL VACCINES (B) Aged Out N o longer eligible based on patient's age to complete this topic Medical Devices Implanted Type Area Embalmer/Funeral Director Device Identifier Shelf Expiration Date Model / Serial / Lot Bilateral Knee Left Hip [place] [id number] [facility] MEDICARE SUPPLEMENT MEDICARE PART A & B Member Subscriber Plan / Payer ( fective 2013-) Name:Ramesh Loja Member ID:[id number] Relation to Subscriber:Self Name:Ramesh Loja Subscriber ID:[id number] Payer ID:[id number] Group ID:Not on file Type:Medicare Address: [employer] MEDICARE SUPPLEMENT MEDICARE PART A & B Member Subscriber Plan / Payer ( fective 2013-Present) Name:Ramesh Loja Member ID:[id number] Relation to Subscriber:Self Name:Ramesh Loja Subscriber ID:[id number] Payer ID:[id number] Group ID:Not on file Type:Medicare Address: [employer] [address] [facility] MEDICARE SUPPLEMENT MEDICARE PART A & B Member Subscriber Plan / Payer (Ef fective 2013-Present) Name:Ramesh Loja Member ID:[id number] Relation to Subscriber:Self Name:Ramesh Loja Subscriber ID:[id number] Payer ID:[id number] Group ID:Not on file Type:Medicare Address: [employer] [address] MEDICARE SUPPLEMENT MEDICARE PART A & B Member Subscriber Plan / Payer (Ef fective 2013-) Name:Ramesh Loja Member ID:[id number] Relation to Subscriber:Self Name:Ramesh Loja Subscriber ID:[id number] Payer ID:[id number] Group ID:Not on file Type:Medicare Address: [employer] [address] [facility] MEDICARE SUPPLEMENT MEDICARE PART A & B [facility] MEDICARE SUPPLEMENT Care Teams Mathematical Engineering Technician Relationship Specialty Start Date End Date Sonja David NP [address] [place] [phone] PCP - General Nurse Practitioner 09/20/24 Additional Source Comments The information contained in this document represents components of the legal health record. It is not the complete legal health record.[facility]
--- OUTSIDE RECORDS SUMMARY | 2025-07-25 14:59 | XMS_ITS | Encounter Summary ---
Author Organization [facility] Address [address] [place] [address] Phone Care Team Providers Care Auto Radio Mechanic Name Role Phone Sonja David NP Primary Care Provider [phone] [phone] Encounter Details Date Type Department Care Team (Late st Contact Info) Description 2025 Telephone [facility] [address] [place] [address] 3rd Floor, [address] [place] [address] Chilo Kuo MD [address] [facility] [facility] [address] [place] [address] [email or web address] Social History Tobacco Use Types Packs/Day Years [...] encounter Progress Notes * Delmis Lea - 2025 10:28 AM EDT [facility] will just need a new RX for the bipap mchine, I can send this out when it is ready documented in this encounter Plan of Treatment Upcoming Encounters Date Type Department Care Team (Late st Contact Info) Description 10/09/2025 10:15 AM EST Office Visit [facility] [address] [place] [address] 3rd Floor, [address] [place] [address] Chilo Kuo MD [address] [place] [address], [address] [address] [email or web address] documented as of this encounter Visit Diagnoses Not on filedocumented in this encounter Care Teams Auto Radio Mechanic Relationship Specialty Start Date End Date Sonja David NP [address] [place] [phone] PCP - General Nurse Practitioner 09/20/24 documented as of this encounter Additional Source Comments The information contained in this document represents components of the legal health record. It is not the complete legal health record.[facility]
--- OUTSIDE RECORDS SUMMARY | 2025-07-25 14:59 | XMS_ITS | Encounter Summary ---
Author Organization [facility] Address [address] [place] [address] Phone Care Team Providers Care Commercial Loan Specialist Name Role Phone Sonja David NP Primary Care Provider [phone] [phone] Encounter Details Date Type Department Care Team (Late st Contact Info) Description 11/06/2024 Procedure Pass [facility], [address] [address] Social History Tobacco Use Types Packs/Day Years [...] Description 10/09/2025 10:15 AM EST Office Visit [facility] [address] [place] [address] 3rd Floor, [address] [place] [address] Chilo Kuo MD [address] [place] [address], [address] [address] [email or web address] documented as of this encounter Visit Diagnoses Not on filedocumented in this encounter Care Teams Commercial Loan Specialist Relationship Specialty Start Date End Date Sonja David NP [address] [place] [phone] PCP - General Nurse Practitioner 09/20/24 documented as of this encounter Additional Source Comments The information contained in this document represents components of the legal health record. It is not the complete legal health record.[facility]
== END 2025-07-25 12:41 | disposition home or self-care (01) ==
LOC: HO.HNS 11:48
PROVIDERS: Visit Provider Physician Assistant
DX: M48.062 Spinal stenosis, lumbar region with neurogenic claudication (principal)
CPT/HCPCS: 99024

== ENCOUNTER → 2025-07-25 11:47 | Outpatient (BNVA) | payer MEDICARE, OTHER, SELFPAY | PROVIDERS: Visit Provider Physician Assistant | DX: Z47.89 Encounter for other orthopedic aftercare (principal); M48.062 Spinal stenosis, lumbar region with neurogenic claudication | CPT/HCPCS: 99212 ==

== ENCOUNTER 2025-08-23 14:12 | Outpatient (AMB) | payer MEDICARE, OTHER, SELFPAY ==
--- NOTE | 2025-08-23 14:16 | HO.SPINEOV ---
Intake Visit Reasons: 2nd post op Intake Note: Mr. Cramer is here today for his 2nd post op. [employer] Combination Teacher Required: No Allergies No Known Allergies Allergy (Verified 08/23/25 14:16) Assessment & Plan Assessment & Plan (1) Lumbar stenosis with neurogenic claudication: Code(s): M48.062 - Spinal stenosis, lumbar region with neurogenic claudication Category: Medical Plan Mr cramer is almost 2 months out from his L4-5 decompression. He seems to be walking more, still getting some fatigue in his legs but not nearly as bad as it was. Especially the pain in the buttocks, that is gone. He gets a little bit of back pain, more so on the right. Overall though he is happy he did the surgery. At the time of surgery we saw spondylolisthesis when we positioned him and he is aware that he should be on some degree of lifting precautions and to avoid heavy straining and bending. Otherwise though he has no specific restrictions. We can see him back on an as-needed basis at this point since he is doing reasonably well and understands his limitations. Lázaro Dudley MD, PhD [facility] [place] [facility] Coding Level of Care Code Global (06335) Diagnoses Lumbar stenosis with neurogenic claudication M48.062
--- OUTSIDE RECORDS SUMMARY | 2025-08-23 17:38 | XMS_ITS | Encounter Summary ---
Author Organization [facility] Address [address] [place] [address] Phone Care Team Providers Care Biomedical Engineering Aide Name Role Phone Sonja David NP Primary Care Provider + [phone] Anita Castillo MD Primary Care Provider [phone] Encounter Details Date Type Department Care Team (Late st Contact Info) Description 11/06/2024 Procedure Pass [facility], [facility] [address] [place] [address] Social History Tobacco Use Types Packs/Day Years [...] Care Team (Late st Contact Info) Description 09/25/2025 4:45 PM EST Office Visit [address] [address] Anita Castillo MD [address] [place] [address] [phone] [email or web address] Cindy Arana, PT [address] [place] [address] [email or web address] 10/02/2025 9:30 AM EST Office Visit [address] [address] Leonardo Salmeron MD [address] [place] [address] Annamarie Rubio, APPLIANCE SERVICER [address] [place] [phone] [email or web address] 10/05/2025 2:45 PM EST Office Visit [address] [address] Leonardo Salmeron MD [address] [place] [address] Annamarie Rubio, APPLIANCE SERVICER [address] [place] [phone] [email or web address] 10/09/2025 10:15 AM EST Office Visit [facility] [address] [place] [address] [address]rd Floor, [address] [place] [address] Chilo Kuo MD 22 [facility], [address] [place] [address] 10/09/2025 4:45 PM EST Office Visit [address] [address] Anita Castillo MD [address] [place] [phone] Cindy Arana, PT [address] [place] [address] [email or web address] 10/12/2025 11:45 AM EST Office Visit [address] [address] Leonardo Salmeron MD [address] [place] [address] Annamarie Rubio, APPLIANCE SERVICER [address] [place] [address] [email or web address] 10/16/2025 9:00 AM EST Office Visit [address] [address] Leonardo Salmeron MD [address] [place] [phone] Cindy Arana, PT [address] [place] [address] [email or web address] 10/18/2025 9:00 AM EST Office Visit [address] [address] Leonardo Salmeron MD [address] [place] [address] Cindy Arana, PT [address] [place] [address] 10/23/2025 11:15 AM EST Office Visit [address] [address] Leonardo Salmeron MD [address] [place] [phone] Cindy Arana, PT [address] [place] [address] 10/25/2025 9:45 AM EST Office Visit [address] [address] Leonardo Salmeron MD [address] [place] [address] Cindy Arana, PT [address] [place] [address] 10/30/2025 9:00 AM EST Office Visit [address] [address] Leonardo Salmeron MD [address] [place] [phone] Cindy Arana, PT [address] [place] [address] [email or web address] 11/01/2025 9:45 AM EST Office Visit [address] [address] Leonardo Salmeron MD [address] [place] [address] Cindy Arana, PT [address] [place] [address] [email or web address] 11/06/2025 9:00 AM EST Office Visit [address] [address] Leonardo Salmeron MD [address] [place] [address] Cindy Arana, PT [address] [place] [address] [email or web address] 11/08/2025 9:00 AM EST Office Visit [address] [address] Leonardo Salmeron MD [address] [place] [phone] Cindy Arana, PT [address] [place] [address] [email or web address] 11/13/2025 9:45 AM EST Office Visit [address] [address] Leonardo Salmeron MD [address] [place] [phone] Cindy Arana, PT [address] [place] [address] [email or web address] 11/15/2025 9:00 AM EST Office Visit [address] [address] Leonardo Salmeron MD [address] [place] [phone] Cindy Arana, PT [address] [place] [address] [email or web address] 11/20/2025 9:00 AM EST Office Visit [facility] [address] [place] [address] Leonardo Salmeron MD [facility] [place] [address] Cindy Arana, PT [address] [place] [address] [email or web address] documented as of this encounter Visit Diagnoses Not on filedocumented in this encounter Care Teams Biomedical Engineering Aide Relationship Specialty Start Date End Date Sonja David NP [address] [place] [address] PCP - General Nurse Practitioner 09/20/24 08/02/25 Anita Castillo MD [address] [place] [phone] PCP - General Family Medicine 08/03/25 documented as of this encounter Additional Source Comments The information contained in this document represents components of the legal health record. It is not the complete legal health record.[facility]
--- OUTSIDE RECORDS SUMMARY | 2025-08-23 17:38 | XMS_ITS ---
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 He was seen on April 09, 2025, at which time he was prescribed Clobetasol 0.05 % topical gel (Apply AM and PM right ear chondrodermatitis) and The following treatment regimen was given: Begin the following treatment(s): Clobetasol 0.05% topical gel: apply AM and PM right earEar pillow recommended. The patient presents for further evaluation and management and follow up evaluation.The patient did not follow the treatment plan as directed.Interval History: Patient reports slow healing and lesion is tender. Medications Medication Generic Name RxNorm Strength Strength Unit Route Dose Dose Form Frequency Date Started Date Ended Status Indication Sig latanoprost 532720 0.005 % Ophtha lmic (eye) Insta ll 1 drops into each eye daily active timolol maleate 3616034 0.5 % Ophtha lmic (eye) Insta ll 1 drops And into each eye daily active clobetasol clobetas ol 186788 0.05 % Topica l gel 04/09/20 25 active Appl y AM and PM righ t ear pat drod greg adenike s Breo Ellipta 2635346 100-25 mcg/dose Inhala tion Inhal e 1 puff Blist er, With Inhal ation Devic e daily active azelastine 2452291 137 mcg (0.1 %) Intran ying Inhal e 1 spray , non-a eroso l into each nostril daily active fluticasone propionate 7650414 50 mcg/actua tion Intran ying Inhal e 1 spray , suspe nsion into each nostril daily active Adult Low Dose Aspirin aspirin 81 mg Oral 1 table t, delay ed relea se (ente elaina coate d) daily active alprazolam 201489 1 mg Oral 1 table t daily active atorvastati n 137139 40 mg Oral 1 table t daily active celecoxib 459265 100 mg Oral 1 capsu le daily active gabapentin 571997 300 mg Oral 1 capsu le QD active Gemtesa 3836730 75 mg Oral table t active levothyroxi ne 019312 125 mcg Oral 1 table t daily active metformin 581664 500 mg Oral 1 Table t, Exten ded Relea se 24 hr daily active omeprazole 437013 20 mg Oral 1 capsu le,de layed relea se (ente elaina coate d) daily active tadalafil 116686 20 mg Oral 1 table t as needed active tamsulosin tamsulos in 503164 0.4 mg Oral 1 capsu le daily active trazodone 656607 100 mg Oral 1 table t daily active zafirlukast 973453 20 mg Oral 1 tabl e t daily active Ozempic 4454981 0.25 mg or 0.5 mg (2 mg/3 mL) Subcut aneous Injec t to muscl e Pen Injec tor weekly active Problems Problem Code Type Status Date of Diagnosis Date of Resolution Neoplasm of uncertain behavior of skin (disorder) 25496896(S NOMED) Diagnosis active 12/20/2024 Hemangioma of skin and subcutaneous tissue (disorder) 600557155( SNOMED) Diagnosis active 12/20/2024 Seborrheic keratosis (disorder) 973331153( SNOMED) Diagnosis active 12/20/2024 Disorder of pigmentation (disorder) 315476374( SNOMED) Diagnosis active 12/20/2024 Melanocytic nevus of trunk (disorder) 299780867( SNOMED) Diagnosis active 12/20/2024 Patient encounter status (finding) 378511670( SNOMED) Diagnosis active 12/20/2024 History of malignant neoplasm of skin (situation) 217627105( SNOMED) Diagnosis active 12/20/2024 Disorder of skin (disorder) 72755252(S NOMED) Diagnosis active 12/20/2024 Allergic rhinitis (disorder) 83678526(S NOMED) Problem active Anxiety disorder (disorder) 607831503( SNOMED) Problem active Arthritis (disorder) 1899154(SN OMED) Problem active Asthma (disorder) 566713380( SNOMED) Problem active Benign prostatic hyperplasia (disorder) 675633990( SNOMED) Problem active Cataract (disorder) 714628276( SNOMED) Problem active Depressive disorder (disorder) 10576986(S NOMED) Problem active Diabetes mellitus (disorder) 79657366(S NOMED) Problem active Gastroesophageal reflux disease (disorder) 612841004( SNOMED) Problem active Hypercholesterolemia (disorder) 78388583(S NOMED) Problem active Hypothyroidism (disorder) 34340122(S NOMED) Problem active Actinic keratosis (disorder) ( SNOMED) Problem active Basal cell carcinoma of skin (disorder) 961660125( SNOMED) Problem active Actinic keratosis (disorder) ( SNOMED) Diagnosis active 02/21/2025 Basal cell carcinoma of truncal skin (disorder) 026358779( SNOMED) Diagnosis active 02/21/2025 Neoplasm of uncertain behavior of skin (disorder) 45155701(S NOMED) Diagnosis active 02/21/2025 History of neoplasm (situation) 497351996( SNOMED) Diagnosis active 04/09/2025 Chondritis of right external ear (disorder) 2966535679 005377(SNO MED) Diagnosis active 04/09/2025 Chondritis of right external ear (disorder) 6079326244 564344(SNO MED) Diagnosis active 08/22/2025 Results No data Encounters Service provided at [facility], [address] [place] [address], [address], [place], [place] [id number]. Office phone number is [phone]. Office fax number is [phone]. Encounter Diagnosis Location Date / Time Type Disc harge Status Chondrodermatitis Nodularis Helicis (H61.031) [facility] 08/22/2025 14:45:00 [place] [address] Reason For Referral No data Procedures Procedure Date Documentation of current medications (pr ocedure) 02/21/2025 12:00 am UTC Destruction of premalignant skin lesion (procedure) 02/21/2025 12:00 am UTC Tumor destruction (procedure) 02/21/2025 12:00 am UTC Shave biopsy (procedure) 02/21/2025 12:0 0 am UTC Documentation of current medications (pr ocedure) 12/20/2024 12:00 am UTC Cryotherapy of skin lesion with liquid n itrogen (procedure) 12/20/2024 12:00 am [facility] Shave biopsy (procedure) 12/20/2024 12:0 0 am [facility] Total replacement of left knee joint (pr ocedure) Total replacement of right knee joint (p rocedure) Total replacement of left hip joint (pro cedure) Total replacement of left hip joint (pro cedure) Total replacement of left knee joint (pr ocedure) Total replacement of right knee joint (p rocedure) Total replacement of left hip joint (pro cedure) Total replacement of left knee joint (pr ocedure) Total replacement of right knee joint (p rocedure) Total replacement of left hip joint (pro cedure) Total replacement of left knee joint (pr ocedure) Total replacement of right knee joint (p rocedure) Total replacement of left knee joint (pr ocedure) 2002 Total replacement of right knee joint (p rocedure) 2002 Total replacement of left hip joint (pro cedure) 12/2019 Review Of Systems Provider reviewed on Aug 22, 2025.A focused review of systems was performed including Integumentary.No Problems With Healing And No Problems With Scarring (hypertrophic Or Keloid). Assessment 1.Chondrodermatitis Nodularis Helicis, Status: Improved - Biopsy proven ounselingMedication CounselingTreatment Regimen: Continue Regimen - Clobetasol 0.05% topical gel: apply AM and PM right ear as needed.Additional Notes Plan of Care Future visit PRN - Follow up PRN. Other Instructions: Cancel March appointment with and reschedule to [facility]. Other Instructions: Cancel March appointment with and reschedule to [facility]. Code Detail Instructions 478807 clobetasol 0.05 % topical gel Ap ply AM and PM right ear chondrodermatitis Instructions * I counseled the patient regarding the following:Expectations: Chondrodermatitis Nodularis Helicis is chronic and can be slow to improve. It can be triggered by trauma or pressure to the underlying cartilage in the ear.Contact office if: Chondrodermatitis Nodularis Helicis ulcerates, or fails to improve despite months of treatment. * Topical Steroids Counseling: I discussed with the patient that prolonged use of topical steroids can result in the increased appearance of superficial blood vessels (telangiectasias), lightening (hypopigmentation) and thinning of the skin (atrophy). Patient understands to avoid using high potency steroids in skin folds, the groin or the face. The patient verbalized understanding of the proper useand possible adverse effects of topical steroids. All of the patient's questions and concerns were addressed. * Continue the following treatment(s): Clobetasol 0.05% topical gel: apply AM and PM right ear as needed. Social History Code Activity Start Date End Date [id number] [facility] Former smoker Sex Male Sexual orientation Don't Know Gender identity Unspecified Vital Signs No data Insurances Coverage Status Coverage Type Relationship to Subscriber Member Identifier Subscriber Identifier Group Identifier Payer Identifier Active Self [id number] Active Self [id number]
--- OUTSIDE RECORDS SUMMARY | 2025-08-23 17:38 | XMS_ITS | Clinical Summary ---
Author Organization [facility] Address [address] [place] [address] Phone Care Team Providers Care Elder Counselor Name Role Phone Anita Castillo MD Primary Care Provider Allergies Active Allergy Reactions Criticality Noted Date Comments Latex 04/24/2015 Medications atorvastatin (LIPITOR) 40 MG tablet Take 1 tablet by mouth every morning. 4 Active fluticasone propionate (FLONASE) 50 mcg/actuation nasal spray 2 sprays by Nasal route as needed. 4 Active fluoride, sodium, (PREVIDENT) 1.1 % Gel APPLY TO TEETH DAILY DIRECTED 4 Active latanoprost (XALATAN) 0.005 % ophthalmic solution INSTILL 1 DROP INTO BOTH EYES EVERY EVENING DIRECTED 4 Active levothyroxine (SYNTHROID, LEVOTHROID) 125 MCG tablet Take 1 tablet by mouth every morning. 4 Active metFORMIN (GLUCOPHAGE-XR) 500 MG 24 hr tablet Take 500 mg by mouth nightly at bedtime. 4 Active omeprazole (PRILOSEC) 40 MG capsule Take 40 mg by mouth daily. 4 Active tamsulosin (FLOMAX) 0.4 mg Cap Take 2 capsules by mouth every morning. 4 Active selenium sulfide 2.5 % lotion WASH AFFECTED AREA EVERY OTHER DAY 4 Active traZODone (DESYREL) 100 MG tablet Take 200 mg by mouth nightly at bedtime. 4 Active aspirin 81 MG EC tablet Take [...] mg Cap Take by mouth daily. Active turmeric/turmeric ext/pepr ext (TURMERIC-TURMERI C EXT-PEPPER) 500-3 mg Cap Take by mouth. Ac tive acetaminophen-cod eine (TYLENOL #3) 300-30 mg per tablet Take 1 tablet by mouth every 6 (six) hours as needed. Active ALPRAZolam (XANAX) 0.25 MG tablet Take 1 tablet by mouth daily as needed. Active famotidine (PEPCID) 40 MG tablet Take 1 tablet by mouth as needed. Active L. acidophilus/Bifid . animalis 32 billion cell Cap Take 1 capsule by mouth daily. Active OZEMPIC 0.25 mg or 0.5 mg (2 mg/3 mL) subcutaneous injection pen 0.5 mg every 7 days. Active tadalafiL (CIALIS) 20 MG tablet Take 1 tablet by mouth as needed. 4 Active timolol (TIMOPTIC) 0.5 % ophthalmic solution INSTILL 1 DROP INTO BOTH EYES EVERY MORNING 4 Active tiZANidine (ZANAFLEX) 2 MG tablet Take 1 tablet by mouth 2 (two) times a day as needed. Active valACYclovir (VALTREX) 1000 MG tablet TAKE 2 TABLETS BY MOUTH TWICE DAILY FOR 1 DAY AT INITIAL ONSET OF COLD SORE. NOT TO EXCEED 4 TABLETS IN 24 HOURS 4 Active azelastine (ASTELIN) 137 mcg (0.1 %) nasal spray 1 spray by Nasal route 2 (two) times a day. Use in each nostril as directed Active zafirlukast (ACCOLATE) 20 MG tablet Take 1 tablet (20 mg total) by mouth 2 (two) times a day. 60 tablet 11 5 Active celecoxib (CELEBREX) 100 MG capsule Take 1 mg by mouth as needed. Active cephalexin (KEFLEX) 500 MG capsule as needed. 5 Active albuterol 90 mcg/actuation inhaler Inhale 2 puffs into the lungs every 4 (four) hours as needed for wheezing or shortness of breath/dyspnea . 18 g 11 5 Active clobetasol (TEMOVATE) 0.05 % Gel Apply topically as needed. 5 Active albuterol-budeson melvin (AIRSUPRA) 90-80 mcg/actuation inhaler Inhale 2 puffs into the lungs as needed for shortness of breath/dyspnea . 10.7 g 11 5 Active Encounters Date Type Department Care Team Description 08/09/2025 Transcribe Orders [facility] [address] [place] [address] Leonardo Salmeron MD Encounter for rehabilitation (Primary Dx) 08/07/2025 Telephone [facility] [address] [place] [address] Becca Sanderson PA-C symptoms 08/06/2025 Telephone [facility] [address] [place] [address] Francisca Kendrick MD more info 08/03/2025 Transcribe Orders [facility] [address] [place] [address] Ashleigh Arevalo Encounter for rehabilitation (Primary Dx) 2025 Telephone [facility] [address], [address] [place] [address] Chilo Kuo MD 06/27/2025 2:15 PM EDT Office Visit [facility] [address], [address] [place] [address] Chilo Kuo MD Moderate persistent asthma without [...] Description 09/25/2025 4:45 PM EST Office Visit [facility] [address] [place] [address] Anita Castillo MD [address] [place] [address] [email or web address] Cnidy Arana, PT [address] [place] [address] [email or web address] 10/02/2025 9:30 AM EST Office Visit [address] [address] Leonardo Salmeron MD [address] [place] [address] Annamarie Rubio, HIGH SCHOOL MUSIC INSTRUCTOR [address] [place] [address] [email or web address] 10/05/2025 2:45 PM EST Office Visit [address] [address] Leonardo Salmeron MD [address] [place] [phone] Annaamrie Rubio, HIGH SCHOOL MUSIC INSTRUCTOR 10 [place] [address] 10/09/2025 10:15 AM EST Office Visit [facility] [address] [place] [address] 3rd Floor, [address] [place] [address] Chilo Kuo MD [address] [place] [address] 10/09/2025 4:45 PM EST Office Visit [address] [address] Anita Castillo MD [address] [place] [address] [phone] Cindy Arana, PT [address] [place] [address] [email or web address] 10/12/2025 11:45 AM EST Office Visit [address] [address] Leonardo Salmeron MD [address] [place] [address] Annamarie Rubio, HIGH SCHOOL MUSIC INSTRUCTOR 10 [place] [address] [email or web address] 10/16/2025 9:00 AM EST Office Visit [address] [address] Leonardo Salmeron MD [address] [place] [phone] Cindy Arana, PT 10 [place] [address] [email or web address] 10/18/2025 9:00 AM EST Office Visit [address] [address] Leonardo Salmeron MD [address] [place] [phone] Cindy Arana, PT [address] [place] [address] [email or web address] 10/23/2025 11:15 AM EST Office Visit [address] [address] Leonardo Salmeron MD [address] [place] [phone] Cindy Arana, PT 10 [place] [address] [email or web address] 10/25/2025 9:45 AM EST Office Visit [address] [address] Leonardo Salmeron MD [address] [place] [address] Cindy Arana, PT 10 [place] [address] [email or web address] 10/30/2025 9:00 AM EST Office Visit [address] [address] Leonardo Salmeron MD [address] [place] [phone] Cindy Arana, PT 10 [place] [address] [email or web address] 11/01/2025 9:45 AM EST Office Visit [address] [address] Leonardo Salmeron MD [address] [place] [address] Cindy Arana, PT 10 [place] [address] [email or web address] 11/06/2025 9:00 AM EST Office Visit [address] [address] Leonardo Salmeron MD [address] [place] [phone] Cindy Arana, PT 10 [place] [address] [email or web address] 11/08/2025 9:00 AM EST Office Visit [address] [address] Leonardo Salmeron MD [address] [place] [address] Cindy Arana, PT 10 [place] [address] [email or web address] 11/13/2025 9:45 AM EST Office Visit [address] [address] Leonardo Salmeron MD [address] [place] [address] Cindy Arana, PT 10 [place] [address] [email or web address] 11/15/2025 9:00 AM EST Office Visit [address] [address] Leonardo Salmeron MD [address] [place] [address] Cindy Arana, PT 10 [place] [address] [email or web address] 11/20/2025 9:00 AM EST Office Visit [address] [address] Leonardo Salmeron MD [address] [place] [address] Cindy Arana, PT [address] [place], [place] [phone] [email or web address] Health Maintenance Due Date Last Done Comments Adult Td,Tdap Booster 1950 CREATININE LEVEL 1950 DEPRESSION SCREENING 1960 HEPATITIS C SCREENING 1966 PNEUMOCOCCAL VACCINES (50+ years) (1 of 2 - PCV) 1967 COLOGUARD 1993 FIT TEST 1993 FOBT 1993 SIGMOIDOSCOPY 1993 VIRTUAL COLONOSCOPY 1993 ZOSTER VACCINES (1 of 2) 1998 RSV VACCINE (1 - 1-dose 75+ series) 2023 TSH LEVEL 08/03/2023 08/03/2022, 11/0 12/2020, 11/14/2020, Additional history exists INFLUENZA VACCINE (#1) 2025 COVID-19 VACCINE ( season) 2025 SMOKING Hx and SMOKELESS TOBACCO SCREENING 06/27/2026 06/27/2025 COLONOSCOPY 05/09/2027 05/09/2024 COLORECTAL CANCER SCREENING 05/09/2027 LIPID PANEL 12/23/2028 12/24/2023 HEPATITIS A VACCINES Aged Out No long er eligible based on patient's age to complete this topic HIB VACCINES Aged Out No longer eligi ble based on patient's age to complete this topic IPV VACCINES Aged Out No longer eligi ble based on patient's age to complete this topic MENINGOCOCCAL VACCINES (ACWY) Aged Out No longer eligible based on patient's age to complete this topic MENINGOCOCCAL VACCINES (B) Aged Out N o longer eligible based on patient's age to complete this topic Medical Devices Implanted Type Area Construction Controller Device Identifier Shelf Expiration Date Model / Serial / Lot Bilateral Knee Left Hip Procedures Procedure Name Priority Date/Time Associated Diagnosis Comments ENDOSCOPY, COLON 05/09/2024 12:4 6 PM EDT from Last 3 Months or Most Recently Relevant to Health Maintenance Results * ENDOSCOPY, COLON (05/09/2024 12:46 PM EDT) Narrative Transcriptions Francisca Kendrick MD - 05/09/2024 12:46 PM EDT [facility] Patient Name: Ramesh Loja Attending MD:: FRANCISCA KENDRICK MD, Procedure Date: 05/09/2024 12:46 PM Date of : 1950 Age: 73 Admit Type: Outpatient Gender: Male Room: [facility] 02 Referring MD: Unknown Pcp Exam Type: Colonoscopy Indications: High risk colon cancer surveillance: Personalhistory of colonic polyps, Last colonoscopy: 2020 Medications: Propofol per Anesthesia Procedure: Informed consent was obtained from the patientafter discussion of the indications, limitations, alternatives, benefits, and risks of the procedure. Risks specifically discussed include but are not limited to medication reactions, missed lesions, bleeding, perforation, or the need for emergent surgery. Throughout the procedure, the patient's blood pressure, pulse, end-tidal CO2, and oxygensaturations were monitored continuously. The Colonoscope was introduced through the anus and advanced to the cecum, identified by appendiceal orifice and ileocecal valve. The ileocecal valve, appendiceal orifice, and rectum were photographed.The colonoscopy was performed with difficulty due to multiple diverticula in the colon, poor endoscopic visualization and a redundant colon. Successful completion of the procedure was aided by applying abdominal pressure and lavage. The quality of the bowel preparation was fair. The bowel preparationused was Miralax via split dose instruction. Complications: No immediate complications. Estimated blood loss:None. Findings: The perianal and digital rectal examinations were normal. Pertinent negatives include normal prostate (size, shape, and consistency). The colon (entire examined portion) wassignificantly redundant. Multiple medium-mouthed diverticula were found inthe entire colon. There was evidence of diverticularspasm. Attempt was made to retroflex the scope in the ascending colon for further visualization but thiswas not easily accomplished and the effort aborted. A second careful survey of the ascending colon wasmade on forward viewing, instead. The exam was otherwise without abnormality. Impression: - Preparation of the colon was fair. - Redundant colon. - Severe diverticulosis in the entire examinedcolon. There was evidence of diverticular spasm. - The examination was otherwise normal. - No specimens collected. Recommendation: - High fiber diet. - Repeat colonoscopy in 3 years for surveillance. - A 2 day bowel prep with Mag Citrate and Golytly would be advantageous for future exams. FRANCISCA KENDRICK MD 05/09/2024 1:42:30 PM This report has been signed electronically. Number of Addenda: 0 Note Initiated On: 05/09/2024 12:46 PM Procedure Code(s): --- Professional --- 06665, Colonoscopy, flexible; diagnostic, including collection of specimen(s) by brushing or washing, when performed (separateprocedure) --- Technical --- 26238, Colonoscopy, flexible; diagnostic, including collection of specimen(s) by brushing or washing, when performed (separateprocedure) Diagnosis Code(s): --- Professional --- Z86.010, Personal history of colonic polyps K57.30, Diverticulosis of large intestine without perforation or abscess without bleeding Q43.8, Other specified congenital malformations of intestine --- Technical --- Z86.010, Personal history of colonic polyps K57.30, Diverticulosis of large intestine without perforation or abscess without bleeding Q43.8, Other specified congenital malformations of intestine CPT copyright 2021 [employer]. All rights reserved. The codes documented in this report are preliminary and upon parts and service manager reviewmay be revised to meet current compliance requirements. Procedure Date: 05/09/2024 12:46:51 PM [address] [place] [address] us Unknown Pcp GI PROCEDURE ORDERABLES Final Re sult from Last 3 Months or Most Recently Relevant to Health Maintenance Insurance MEDICARE PART A & B Member Subscriber Plan / Payer ( fective 2013-) Name:Ramesh Loja Member ID:[id number] Relation to Subscriber:Self Name:Ramesh Loja Subscriber ID:[id number] Payer ID:[id number] Group ID:Not on file Type:Medicare Address: [employer] [address] MEDICARE SUPPLEMENT MEDICARE PART A & B Member Subscriber Plan / Payer ( fective 2013-) Name:Ramesh Loja Member ID:[id number] Relation to Subscriber:Self Name:Ramesh Loja Subscriber ID:[id number] Payer ID:[id number] Group ID:Not on file Type:Medicare Address: [employer] [address] MEDICARE SUPPLEMENT MEDICARE PART A & B Member Subscriber Plan / Payer ( fective 2013-) Name:Ramesh Loja Member ID:[id number] Relation to Subscriber:Self Name:Ramesh Loja Subscriber ID:[id number] Payer ID:[id number] Group ID:Not on file Type:Medicare Address: [employer] [address] MEDICARE SUPPLEMENT MEDICARE PART A & B Member Subscriber Plan / Payer ( fective 2013-) Name:Ramesh Loja Member ID:[id number] Relation to Subscriber:Self Name:Freedom Ramesh Subscriber ID:[id number] Payer ID:[id number] Group ID:Not on file Type:Medicare Address: [employer] [address] [place] [id number] [place] [address] MEDICARE SUPPLEMENT MEDICARE PART A & B MEDICARE SUPPLEMENT MEDICARE PART A & B MEDICARE SUPPLEMENT Care Teams Elder Counselor Relationship Specialty Start Date End Date Anita Castillo MD [address] [place] [address] [email or web address] PCP - General Family Medicine 08/03/25 Additional Source Comments The information contained in this document represents components of the legal health record. It is not the complete legal health record.[facility]
--- OUTSIDE RECORDS SUMMARY | 2025-08-23 17:38 | XMS_ITS | Encounter Summary ---
Author Organization [facility] Address [address] [place] [address] Phone Care Team Providers Care Application Support Manager Name Role Phone Sonja David NP Primary Care Provider + [phone] Anita Castillo MD Primary Care Provider [phone] Encounter Details Date Type Department Care Team (Late st Contact Info) Description 2025 Telephone [facility] [address] 3rd Floor, [address] [place] [address] Chilo Kuo MD [address] [facility] [address] [place] [address] [email or web address] Social History Tobacco Use Types Packs/Day Years [...] of this encounter Progress Notes * Delmis Lae - 2025 10:28 AM EDT [facility] will just need a new RX for the bipap mchine, I can send this out when it is ready documented in this encounter Plan of Treatment Upcoming Encounters Date Type Department Care Team (Late st Contact Info) Description 09/25/2025 4:45 PM EST Office Visit [address] [address] Anita Castillo MD [address] [place] [address] Cindy Arana, PT [address] [place] [address] 10/02/2025 9:30 AM EST Office Visit [address] [address] Leonardo Salmeron MD [facility] [place] [address] Annamarie Rubio PRODUCE INSPECTOR [address] [place] [address] [email or web address] 10/05/2025 2:45 PM EST Office Visit [address] [address] Leonardo Salmeron MD [address] [place] [phone] Annamarie Rubio, PRODUCE INSPECTOR [address] [place] [address] 10/09/2025 10:15 AM EST Office Visit [facility] [address] [place] [address] Floor, [address] [place] [address] Chilo Kuo MD [address] [place] [address] 10/09/2025 4:45 PM EST Office Visit [address] [address] Anita Castillo MD [address] [place] [address] Cindy Arana, PT 10 [place] [address] [email or web address] 10/12/2025 11:45 AM EST Office Visit [address] [address] Leonardo Salmeron MD [address] [place] [phone] Annamarie Rubio, PRODUCE INSPECTOR [address] [place] [address] [email or web address] 10/16/2025 9:00 AM EST Office Visit [address] [address] Leonardo Salmeron MD [address] [place] [address] Cindy Arana, PT 10 [place] [address] 10/18/2025 9:00 AM EST Office Visit [address] [address] Leonardo Salmeron MD [address] [place] [address] Cindy Arana, PT 10 [place] [address] 10/23/2025 11:15 AM EST Office Visit [address] [address] Leonardo Salmeron MD [address] [place] [phone] Cindy Arana, PT 10 [place] [address] 10/25/2025 9:45 AM EST Office Visit [address] [address] Leonardo Salmeron MD [address] [place] [address] Cindy Arana, PT 10 [place] [address] [email or web address] 10/30/2025 9:00 AM EST Office Visit [address] [address] Leonardo Salmeron MD [address] [place] [address] Cindy Arana, PT 10 [place] [address] 11/01/2025 9:45 AM EST Office Visit [address] [address] Leonardo Salmeron MD [address] [place] [phone] Cindy Arana, PT 10 [place] [address] 11/06/2025 9:00 AM EST Office Visit [address] [address] Leonardo Salmeron MD [address] [place] [phone] Cindy Arana, PT 10 [place] [address] 11/08/2025 9:00 AM EST Office Visit [address] [address] Leonardo Salmeron MD [address] [place] [phone] Cindy Arana, PT 10 [place] [address] [email or web address] 11/13/2025 9:45 AM EST Office Visit [address] [address] Leonardo Salmeron MD [address] [place] [phone] Cindy Arana, PT 10 [place] [address] [email or web address] 11/15/2025 9:00 AM EST Office Visit [address] [address] Leonardo Salmeron MD [address] [place] [address] Cindy Arana, PT 10 [place] [address] [email or web address] 11/20/2025 9:00 AM EST Office Visit [address] [address] Leonardo Salmeron MD [address] [place] [phone] Cindy Arana, PT 10 [place] [address] [email or web address] documented as of this encounter Visit Diagnoses Not on filedocumented in this encounter Care Teams Application Support Manager Relationship Specialty Start Date End Date Sonja David NP [address] [place] [address] PCP - General Nurse Practitioner 09/20/24 08/02/25 Anita Castillo MD [address] [place] [address] PCP - General Family Medicine 08/03/25 documented as of this encounter Additional Source Comments The information contained in this document represents components of the legal health record. It is not the complete legal health record.[facility]
--- OUTSIDE RECORDS SUMMARY | 2025-08-23 17:38 | XMS_ITS | Encounter Summary ---
Author Organization [facility] Address [address] [place] [address] Phone Care Team Providers Care Hybrid Corn Breeder Name Role Phone Pcp, Unknown Primary Care Provider Sonja Shaw NP Primary Care Provider + [phone] Anita Castillo MD Primary Care Provider [phone] Encounter Details Date Type Department Care Team (Late st Contact Info) Description 05/09/2024 Procedure Pass [facility] Endoscopy Admitting Dept Virtual Department [address] [place] [address] Social History Tobacco Use Types Packs/Day Years Used Date Smoking Tobacco: Former Cigarettes Q uit: 2003 Smokeless Tobacco: Never Alcohol Use Standard Drinks/Week [...] Description 09/25/2025 4:45 PM EST Office Visit [address] [address] Anita Castillo MD [address] [place] [address] Cindy Arana, PT 10 [place] [address] 10/02/2025 9:30 AM EST Office Visit [address] [address] Leonardo Salmeron MD [address] [place] [phone] Annamarie Rubio, VOCATIONAL NURSE LVN [address] [place] [address] 10/05/2025 2:45 PM EST Office Visit [address] [address] Leonardo Salmeron MD [address] [place] [address] Annamarie Rubio, VOCATIONAL NURSE LVN [address] [place] [address] 10/09/2025 10:15 AM EST Office Visit [facility] [address] [place] [address] 3rd Floor, [address] [place] [address] Chilo Kuo MD [address] [facility], [address] [address] 10/09/2025 4:45 PM EST Office Visit [address] [address] Anita Castillo MD [address] [place] [address] Cindy Arana, PT 10 [place] [address] 10/12/2025 11:45 AM EST Office Visit [address] [address] Leonardo Salmeron MD [address] [place] [phone] Annamarie Rubio, VOCATIONAL NURSE LVN 10 [place] [address] 10/16/2025 9:00 AM EST Office Visit [address] [address] Leonardo Salmeron MD [address] [place] [phone] Cindy Arana, PT 10 [place] [address] 10/18/2025 9:00 AM EST Office Visit [address] [address] Leonardo Salmeron MD [address] [place] [address] Cindy Arana, PT 10 [place] [address] [email or web address] 10/23/2025 11:15 AM EST Office Visit [address] [address] Leonardo Salmeron MD [address] [place] [address] Cindy Arana, PT 10 [place] [address] [email or web address] 10/25/2025 9:45 AM EST Office Visit [address] [address] Leonardo Salmeron MD [address] [place] [address] Cindy Arana, PT 10 [place] [address] [email or web address] 10/30/2025 9:00 AM EST Office Visit [address] [address] Leonardo Salmeron MD [address] [place] [address] Cindy Arana, PT 10 [place] [address] [email or web address] 11/01/2025 9:45 AM EST Office Visit [address] [address] Leonardo Salmeron MD [address] [place] [address] Cindy Arana, PT 10 [place] [address] [email or web address] 11/06/2025 9:00 AM EST Office Visit [address] [address] Leonardo Salmeron MD [address] [place] [address] Cindy Arana, PT 10 [place] [address] 11/08/2025 9:00 AM EST Office Visit [address] [address] Leonardo Salmeron MD [address] [place] [phone] Cindy Arana, PT 10 [place] [address] 11/13/2025 9:45 AM EST Office Visit [address] [address] Leonardo Salmeron MD [address] [place] [phone] Cindy Arana, PT 10 [place] [address] 11/15/2025 9:00 AM EST Office Visit [address] [address] Leonardo Salmeron MD [address] [place] [phone] Cindy Arana, PT 10 [place] [address] [email or web address] 11/20/2025 9:00 AM EST Office Visit [facility] [address] [place] [address] BrothersLeonardo MD [address] [place] [address] Cindy Arana, PT 10 [place] [address] [email or web address] documented as of this encounter Visit Diagnoses Not on filedocumented in this encounter Care Teams Hybrid Corn Breeder Relationship Specialty Start Date End Date Pcp, Unknown PCP - General 01/18/24 09/19/24 Sonja David NP [address] [place] [address] PCP - General Nurse Practitioner 09/20/24 08/02/25 Anita Castillo MD [address] [place] [address] PCP - General Family Medicine 08/03/25 documented as of this encounter Additional Source Comments The information contained in this document represents components of the legal health record. It is not the complete legal health record.[facility]
== END 2025-08-23 14:47 | disposition home or self-care (01) ==
LOC: HO.HNS 14:13
PROVIDERS: Visit Provider Physician Assistant
DX: M48.062 Spinal stenosis, lumbar region with neurogenic claudication (principal)
CPT/HCPCS: 99024

== ENCOUNTER → 2025-08-23 14:12 | Outpatient (BNVA) | payer MEDICARE, OTHER, SELFPAY | PROVIDERS: Visit Provider Physician Assistant | DX: M48.062 Spinal stenosis, lumbar region with neurogenic claudication (principal); Z98.890 Other specified postprocedural states | CPT/HCPCS: 99212 ==